=== PATIENT | female | born 1955 | race Caucasian/White ===

== ENCOUNTER 2017-07-21 11:14 | Emergency (ER) | payer OTHER ==
[~2017-07-21] VITALS: Ht 157.5 cm; Wt 82.1 kg
[~2017-07-21 11:14] MED LIST: REMICADE100 MG; TAPENTADOL PO; Z.0.CELEXA40 MG PO; Z.0.MILLIPRED5 MG; Z.0.PLAQUENIL200 MG; Z.0.ULTRAM 50MG50 MG PO; Z.0.XANAX0.5 MG PO; [UNRECOGNIZED DRUG - OTHER]; [UNRECOGNIZED DRUG - OTHER]; [UNRECOGNIZED DRUG - OTHER] PO
[2017-07-21 11:59] LABS: BASOPHILS # (AUTO) 0.1 (0.0-0.1); BASOPHILS % 0.7 % (0.0-1.0); EOSINOPHILS # (AUTO) 0.1 (0.0-0.4); EOSINOPHILS % 0.6 % (0.0-6.0); HEMATOCRIT 41.4 % (34.2-44.1); HEMOGLOBIN 13.3 g/dL (12.0-16.0); LYMPHOCYTES # (AUTO) 2.5 (1.0-3.2); LYMPHOCYTES % 25.3 % (18.0-39.1); MEAN CORPUSCULAR HEMOGLOBIN 28.7 pg (28-32); MEAN CORPUSCULAR HGB CONC 32.1 g/dL (31-35); MEAN CORPUSCULAR VOLUME 89.4 fL (81-99); MONOCYTES # (AUTO) 0.6 (0.2-0.8); NEUTROPHILS # (AUTO) 6.6 (2.1-6.9); NEUTROPHILS % 67.1 % (38.7-80.0); PLATELET COUNT 293 x10e3/uL (140-360); RED BLOOD COUNT 4.63 x10e6/uL (3.6-5.1); RED CELL DISTRIBUTION WIDTH 16.5 % (11.7-14.4)
[2017-07-21 12:09] LABS: INR 0.86; PROTHROMBIN TIME 12.2 seconds (11.9-14.5)
[2017-07-21 12:10] LABS: PARTIAL THROMBOPLASTIN TIME 27.5 seconds (23.8-35.5)
[2017-07-21 12:17] LABS: ALANINE AMINOTRANSFERASE 15 IU/L (0-55); ALKALINE PHOSPHATASE 103 IU/L (40-150); ANION GAP 13.9 mmol/L (8-16); BLOOD UREA NITROGEN 13 mg/dL (7-26); BUN/CREATININE RATIO 16 (6-25); CALCIUM 9.5 mg/dL (8.4-10.2); CARBON DIOXIDE 27 mmol/L (22-29); CHLORIDE 102 mmol/L (98-107); CREATINE KINASE 37 IU/L (29-168); CREATININE, SERUM 0.81 mg/dL (0.57-1.11); EST GLOMERULAR FILTRATION RATE > 60 ML/MIN (60-); GLUCOSE 119 mg/dL (74-118); LIPASE 8 U/L (8-78); POTASSIUM 3.9 mmol/L (3.5-5.1); SODIUM 139 mmol/L (136-145)
[2017-07-21] MEDS ORDERED: TRAMADOL HCL 50 MG TAB PO ONE (12:30)
[2017-07-21 12:41] LABS: BILIRUBIN,URINE NEGATIVE (NEGATIVE); KETONES,URINE NEGATIVE (NEGATIVE); LEUKOCYTE ESTERASE ,URINE TRACE (NEGATIVE); NITRITE,URINE NEGATIVE (NEGATIVE); PROTEIN,URINE DIPSTICK NEGATIVE (NEGATIVE); URINE UROBILINOGEN 0.2 mg/dL (0.2 - 1)
--- NOTE | 2017-07-21 12:58 | Diagnostic Imaging Report ---
PROCEDURE: A single AP view of the chest. COMPARISON: Chest x-ray of 12/12/2011. INDICATIONS: CHEST PAIN FINDINGS: Lines/tubes: None. Lungs: The lungs are well inflated. Several subtle nodular opacities in the right upper lobe. Slight increase in groundglass opacity in the left lung base. Pleura: There is no pleural effusion or pneumothorax. Heart and mediastinum: The heart and the mediastinum are unremarkable. Bones: No acute bony abnormality. Severe degenerative changes in bilateral humeral heads with flattening of the right humeral head. IMPRESSION: 1. Scattered nodular opacities in the right upper lobe and ground glass opacities in left lung base. This likely represents infection. 2. Severe degenerative changes in bilateral humeral heads with collapse of the right humeral head. Correlate for avascular necrosis. Dictated by: Erich Silva M.D. on 07/21/2017 at 13:06 Electronically approved by: Erich Silva M.D. on 07/21/2017 at 13:06
[2017-07-21 13:22] LABS: BACTERIA,URINE RARE /HPF; CLARITY,URINE SL CLOUDY (CLEAR); COLOR,URINE YELLOW (YELLOW); EPITHELIAL CELLS,URINE RARE /LPF
[2017-07-21 15:07] VITALS: BP 111/53
== END 2017-07-21 15:14 | disposition home or self-care (01) ==
LOC: ER 11:14
DX: R07.89 Other chest pain (principal); J18.9 Pneumonia, unspecified organism; I10 Essential (primary) hypertension; M06.9 Rheumatoid arthritis, unspecified; K50.90 Crohn's disease, unspecified, without complications
CPT/HCPCS: 36415; 71010; 80053; 81001; 82550; 82553; 83690; 84484; 85025; 85610; 85730; 87086; 93005; 99284

== ENCOUNTER → 2018-04-19 | Outpatient (CLI) | payer OTHER ==
[~2018-04-19] MED LIST changes: +SINCALIDE 3 MCG/VIAL INJ ONE
--- NOTE | 2018-04-19 14:11 | Diagnostic Imaging Report ---
EXAM: US GALLBLADDER DATE: 04/19/2018 1:13 PM INDICATION: Acute gastritis COMPARISON: None TECHNIQUE: Transverse and longitudinal cantor scale and color doppler sonographic images of the upper abdomen were obtained. FINDINGS: LIVER 12.7 cm in the right midclavicular line. Normal echogenicity, normal contour, no masses. GALLBLADDER No stones, sludge, wall-thickening or pericholecystic fluid. Negative sonographic Martinez's sign. BILE DUCTS No intra nor extra-hepatic biliary dilation. Common bile duct measures 0.5 cm PANCREAS: Visualized portions are normal. RIGHT KIDNEY: 9.2 cm Echogenicity: Normal Collecting System: No hydronephrosis Stones: None Cyst/Mass: None VESSELS: Aorta: Visualized portions are within normal size limits Inferior Vena Cava: Patent Main Portal Vein: 0.8 cm, normal size with hepatopetal flow. FREE FLUID: None IMPRESSION: Unremarkable sonographic appearance of the gallbladder. Signed by: Dr. Satya Vinson M.D. on 04/19/2018 2:08 PM
--- NOTE | 2018-04-19 17:43 | Diagnostic Imaging Report ---
Hepatobiliary Scan with Gallbladder Ejection Fraction Clinical information: RUQ abdominal pain x 6 months; history of Crohn's disease. Report: Following intravenous administration of 6.6 millicuries of Tc-99m mebrofenin, dynamic images of the abdomen in the anterior projection were obtained through 51 minutes. Sincalide (CCK analog) 1.5 micrograms was administered intravenously over 30 minutes with additional imaging for determination of gallbladder ejection fraction. Perfusion to the liver is normal. Extraction of tracer from the blood pool by the liver parenchyma is normal. Tracer is seen promptly within the biliary tract. The gallbladder begins to fill by 12 minutes post-injection of tracer and fills adequately. Tracer is seen in the small bowel during the sincalide infusion. The gallbladder ejection fraction with administration of sincalide is 70% (normal greater than 40%). Impression: 1. Filling of the gallbladder excludes the diagnosis of acute cystic duct obstruction/acute cholecystitis. 2. Normal gallbladder ejection fraction of 70% does not support the clinical diagnosis of chronic cholecystitis/gallbladder dyskinesia. Signed by: Dr. Valery Mejia M.D. on 04/19/2018 5:39 PM
== END ==
LOC: US 12:59
PROVIDERS: ATTEND Internal Medicine Gastroenterology
DX: K29.00 Acute gastritis without bleeding (principal)
CPT/HCPCS: 76705; 78227; A9537; J2805

== ENCOUNTER → 2018-06-10 | Outpatient (CLI) | payer OTHER ==
[~2018-06-10] MED LIST changes: -SINCALIDE 3 MCG/VIAL INJ ONE
--- NOTE | 2018-06-10 12:22 | Diagnostic Imaging Report ---
Frontal and lateral views of the chest. HISTORY: Latent TB TEST, CHRON'S DZ COMPARISON: None available. DISCUSSION: Lungs: Low lung volumes result in bibasilar vascular crowding, accentuation of the pulmonary interstitial markings, central pulmonary vasculature, and the cardiac silhouette. Allowing for these limitations, the findings are as follows: Mild left basilar atelectasis versus scarring, best seen on the frontal view. No evidence of a consolidative pneumonia or pulmonary alveolar edema. Pleura: No pleural effusion or pneumothorax. Heart and mediastinum: The cardiomediastinal silhouette appears unremarkable. Bones: Partially visualized posterior lumbosacral fixation hardware and decompressive laminectomy defects. IMPRESSION: 1. Mild left basilar atelectasis versus scarring. 2. No specific radiographic evidence of active tuberculosis Signed by: Dr. Velasquez Francisco D.O., M.M.M. on 06/10/2018 12:18 PM
== END ==
LOC: RAD 10:53
PROVIDERS: ATTEND Internal Medicine Critical Care Medicine
DX: A15.9 Respiratory tuberculosis unspecified (principal); K50.90 Crohn's disease, unspecified, without complications
CPT/HCPCS: 71046

== ENCOUNTER 2018-10-18 11:18 | Observation (INO) | payer OTHER ==
[~2018-10-18] VITALS: Ht 157.5 cm; Wt 70.3 kg
--- OUTSIDE RECORDS SUMMARY | 2018-10-18 11:21 | XMS REPORT ---
Author [facility] Address Unknown Phone Unavailable Care Team Providers Care Vendor Representatives Name Role Phone NISHI VARGAS Unavailable Unavailable ALBERTO GIPSON Unavailable Unavailable DR BON FERNANDES Unavailable Unavailable [place] GRAY Unavailable Unavailable Problems This patient has no known problems. Allergies, Adverse Reactions, Alerts This patient has no known allergies or adverse reactions. Medications This patient has no known medications. Encounters Start Date/Time End Date/Time Encounter Type Admission Type Attending [facility] Care Department Encounter ID 2017-08-10 11:46:00 2017-08-10 14:39:00 Outpatient [facility] [id number] 2017-05-20 11:33:00 2017-05-20 13:40:00 Outpatient [facility] [id number] Results Test Description Test Time Test Comments Text Results Atomic Results Result Comments CHEST 2 VIEWS 2018-06-10 12:16:00 [place] [address] Patient Name: TASHI KHAN MR #: [id number] : 1955 Age/Sex: 63/F Req #: [id number] Adm Physician: Ordered by: NISHI VARGAS MD Report #: [id number] Location: [facility] Room/Bed: Procedure: [id number] DX/CHEST 2 VIEWS Exam Date: Exam Time: REPORT STATUS: Signed Frontal and lateral views of the chest. HISTORY: Latent TB TEST, CHRON'S DZ COMPARISON: None available. DISCUSSION: Lungs: Low lung volumes result in bibasilar vascular crowding, accentuation of the pulmonary interstitial markings, central pulmonary vasculature, and the cardiac silhouette. Allowing for these limitations, the findings are as follows: Mild left basilar atelectasis versus scarring, best seen on the frontal view. No evidence of a consolidative pneumonia or pulmonary alveolar edema. Pleura: No pleural effusion or pneumothorax. Heart and mediastinum: The cardiomediastinal silhouette appears unremarkable. Bones: Partially visualized posterior lumbosacral fixation hardware and decompressive laminectomy defects. IMPRESSION: 1. Mild left basilar atelectasis versus scarring. 2. No specific radiographic evidence of active tuberculosis Signed by: Dr. Velasquez Francisco D.O., M.M.M. on 06/10/2018 12:18 PM Dictated By: VELASQUEZ FRANCISCO DO 1218 Transcribed By: JEFFRY on 06/10/18 1218 COPY TO: NISHI VARGAS MD HEPTOBILIARY W PHARM 2018-04-19 17:37:00 [place] [address] Patient Name: TASHI KHAN MR #: [id number] : 1955 Age/Sex: 63/F Req #: [id number] Adm Physician: Ordered by: ALBERTO GIPSON MD Report #: [id number] Location: US Room/Bed: Procedure: [id number] NM/HEPTOBILIARY W PHARM Exam Date: 10/08/18 Exam Time: 1010 REPORT STATUS: Signed Hepatobiliary Scan with Gallbladder Ejection Fraction Clinical information: RUQ abdominal pain x 6 months; history of Crohn's disease. Report: Following intravenous administration of 6.6 millicuries of Tc-99m mebrofenin, dynamic images of the abdomen in the anterior projection were obtained through 51 minutes. Sincalide (CCK analog) 1.5 micrograms was administered intravenously over 30 minutes with additional imaging for determination of gallbladder ejection fraction. Perfusion to the liver is normal. Extraction of tracer from the blood pool by the liver parenchyma is normal. Tracer is seen promptly within the biliary tract. The gallbladder begins to fill by 12 minutes post-injection of tracer and fills adequately. Tracer is seen in the small bowel during the sincalide infusion. The gallblad celso ejection fraction with administration of sincalide is 70% (normal greater than 40%). Impression: 1. Filling of the gallbladder excludes the diagnosis of acute cystic duct obstruction/acute cholecystitis. 2. Normal gallbladder ejection fraction of 70% does not support the clinical diagnosis of chronic cholecystitis/gallbladder dyskinesia. Signed by: Dr. Bryn Mejia M.D. on 04/19/2018 5:39 PM Dictated By: BRYN MEJIA MD 38 Transcribed By: JEFFRY on 04/19/181738 COPY TO: ALBERTO GIPSON MD GALLBLADDER 2018-04-19 14:06:00 [place] [address] Patient Name: TASHI KHAN MR #: [id number] : 1955 Age/Sex: 63/F Req #: [id number] Adm Physician: Ordered by: ALBERTO GIPSON MD Report #: [id number] Location: US Room/Bed: Procedure: [id number] US/US GALLBLADDER Exam Date: Exam Time: REPORT STATUS: Signed EXAM: US GALLBLADDER DATE: 04/19/2018 1:13 PM INDICATION: Acute gastritis COMPARISON: None TECHNIQUE: Transverse and longitudinal cantor scale and color doppler sonographic images of the upper abdomen were obtained. FINDINGS: LIVER 12.7 cm in the right midclavicular line. Normal echogenicity, normal contour, no masses. GALLBLADDER No stones, sludge, wall- thickening or pericholecystic fluid. Negative sonographic Martinez's sign. BILE DUCTS No intra nor extra-hepatic biliary dilation. Common bile duct measures 0.5 cm PANCREAS: Visualized portions are normal. RIGHT KIDNEY: 9.2 cm Echogenicity: Normal Collecting System: No hydronephrosis Stones: None Cyst/Mass: None VESSELS: Aorta: Visualized portions are within normal size limits Inferior Vena Cava: Patent Main Portal Vein: 0.8 cm, normal size with hepatopetal flow. FREE FLUID: None IMPRESSION: Unremarkable sonographic appearance of the gallbladder. Signed by: Dr. Karon Bunn M.D. on 04/19/2018 2:08 PM Dictated By: KARON BUNN MD 07 Transcribed By: JEFFRY on 04/19/181407 COPY TO: ALBERTO GIPSON MD [facility] (NOT PORTABLE) [place] [address] Patient Name: TASHI KHAN MR #: [id number] : 1955 Age/Sex: 62/F Req #: [id number] Adm Physician: Ordered by: PATRICIA LAYNE GAS TESTER Report #: [id number] Location: Room/Bed: Procedure: [id number] DX/CHEST SINGLE (NOT PORTABLE) Exam Date: 07/21/17 Exam Time: 1235 REPORT STATUS: Signed PROCEDURE: A single AP view of the chest. COMPARISON: Chest x-ray of 12/12/2011. INDICATIONS: CHEST PAIN FINDINGS: Lines/tubes: None. Lungs: The lungs are well inflated. Several subtle nodular opacities in the right upper lobe. Slight increase in groundglass opacity in the left lung base. Pleura: There is no pleural effusion or pneumothorax. Heart and mediastinum: The heart and the mediastinum are unremarkable. Bones: No acute bony abnormality. Severe degenerative changes in bilateral humeral heads with flattening of the right humeral head. IMPRESSION: 1. Scattered nodular opacities in the right upper lobe and ground glass opacities in left lung base. This likely represents infection. 2. Severe degenerative changes in bilateral humeral heads with collapse of the right humeral head. Correlate for avascular necrosis. Dictated by: Erich Bobo M.D. on 07/21/2017 at 13:06 Electronically approved by: Erich Bobo M.D. on 07/21/2017 at 13:06 Dictated By: ERICH BOBO MD 1306 Transcribed By: FEDERICA on 07/21/17 1306 COPY TO: PATRICIA LAYNE NP
--- OUTSIDE RECORDS SUMMARY | 2018-10-18 11:21 | XMS REPORT | Summary of Care ---
Author Author [facility] Organization [facility] Address Unknown Phone Unavailable Encounter [facility] Grady(DAVON) [id number] Date(s): 12/08/17 - 12/08/[address] [facility] [address] [place] [address]- Encounter Diagnosis Fall (Discharge Diagnosis) - 12/08/17 Back pain (Discharge Diagnosis) - 12/08/17 Discharge Disposition: Home or Self Care Attending Physician: Chiqui Krishnan MD Vital Signs Most recent to 1 2 oldest [Reference Range]: Height 157.48 cm (12/08/17 12:05 PM) Temperature Oral 98.9 DegF 99.6 DegF [96.4-99.1 DegF] (12/08/17 4:33 PM) *HI* (12/08/17 12:05 PM) Blood Pressure 105/67 mmHg 98/73 mmHg [90-140/60-90 mmHg] (12/08/17 4:33 PM) (12/08/17 12:05 PM) Respiratory Rate 15 BRMIN 18 BRMIN [14-20 BRMIN] (12/08/17 4:33 PM) (12/08/17 12:05 PM) Peripheral Pulse 85 bpm 91 bpm Rate [60-100 bpm] (12/08/17 4:33 PM) (12/08/17 12:05 PM) Weight 75 kg (12/08/17 12:05 PM) Body Mass Index 30.24 m2 (12/08/17 12:05 PM) Problem List No data available for this section Allergies, Adverse Reactions, Alerts Substance Reaction Severity Status NKDA Active Medications ibuprofen 400 mg oral tablet 400 mg=1 tab, PO, Q6H, PRN Pain or Fever, Take with food, X 5 day, # 20 tab, 0 R efill(s) Start Date: 12/08/17 Stop Date: 12/13/17 Status: Ordered [place] 5/325 oral tablet 1 tab, Route: PO, Drug Form: TAB, Dosing Weight 75, kg, ONCE, STAT, Start date: 12/08/17 12:35:00 CDT, Stop date: 12/08/17 12:35:00 CDT Notes: (Same as: [place] 325/5) Do not exceed 4gm/day of acetaminophen. Start Date: 12/08/17 Stop Date: 12/08/17 Status: Completed tramadol 50 mg oral tablet 50 mg=1 tab, PO, Q6H, PRN Pain, X 2 day, # 8 tab, 0 Refill(s) Start Date: 12/08/17 Stop Date: 12/10/17 Status: Completed Results No data available for this section Immunizations No data available for this section Procedures No data available for this section Social History Social History Type Response Smoking Status Heavy tobacco smoker; Type: Cigarettes; Previous treatment: None; Exposure to Tobacco Smoke None; Cigarette Smoking Last 365 Days Yes; Reg Smoking Cessation Counseling No entered on: 12/08/17 Assessment and Plan No data available for this section
--- OUTSIDE RECORDS SUMMARY | 2018-10-18 11:21 | XMS REPORT | Continuity of Care Document ---
Author Author Ace trey [facility] Address Unknown Phone Unavailable Problems Problem Status Onset Date Classification Date Reported Comments Source MRI LUMBAR SPINE W-WO CONTRAST DX: LOW B Active 07/29/2018 [facility] Fall 12/08/2017 12/11/2017 [facility] Back pain 12/08/2017 12/11/2017 [facility] FALL Active 12/08/2017 [facility] Medications Medication Details Route Status Patient Instructions Ordering Provider Order Date Source tramadol hydrochloride 50 MG Oral Tablet 50 mg=1 tab, PO, Q6H, PRN Pain, X 2 day, # 8 tab, 0 Refill(s) No Longer Active 12/08/2017 [facility] Ibuprofen 400 MG Oral Tablet 400 mg=1 tab, PO, Q6H, PRN Pain or Fever, Take with food, X 5 day, # 20 tab, 0 Refill(s) Active 12/08/2017 [facility] Acetaminophen 325 MG / Hydrocodone Bitartrate 5 MG Oral Tablet [[place] 5/325] 1 tab, Route: PO, Drug Form: TAB, Dosing Weight 75, kg, ONCE, STAT, Start date: 12/08/17 12:35:00 CDT, Stop date: 12/08/17 12:35:00 CDTNotes: (Same as: [place] 325/5) Do not exceed 4gm/day of acetaminophen. Inactive 12/08/2017 [facility] Allergies, Adverse Reactions, Alerts Substance Category Reaction Severity Reaction type Status Date Reported Comments Source Immunizations Immunization Date Given Site Status Last Updated Comments Source Results Order Name Results Value Reference Range Date Interpretation Comments Source CHEM PANEL eGFR 99 mL/min/1.73m2 08/05/2018 Result Comment: The eGFR is calculated using the CKD-EPI formula. In most young, healthy individuals the eGFR will be >90 mL/min/1.73m2. The eGFR declines with age. An eGFR of 60-89 may be normal in some populations, particularly the elderly, for whom the CKD-EPI formula has not been extensively validated. Use of the eGFR is not recommended in the following populations: Individuals with unstable creatinine concentrations, including patients and those with serious co-morbid conditions. Patients with extremes in muscle mass or diet. The data above are obtained from the National Kidney Disease Education Program (NKDEP) which additionally recommends that when the eGFR is used in patients with extremes of body mass index for purposes of drug dosing, the eGFR should be multiplied by the estimated BMI. [facility] CHEM PANEL POC Creatinine 0.6 mg/dL 0.5 - 1.4 08/05/2018 [facility] Spine lumbar w/wo contrast MRI Spine lumbar w/wo contrast MRI Clinical Indication: - M54.5 Low back pain; Comparison: Lumbar spine radiograph 12/08/2017 TECHNIQUE: Multiplanar T1, T2, STIR weighted noncontrast MRI of the lumbar spine is performed on the 1.5 June magnet. Post-contrast sequences were also obtained. Contrast: 14 cc of IV gadolinium was administered. FINDINGS: ALIGNMENT AND GENERAL ASSESSMENT: Posterior lumbar fusion spans L3-L5. Alignment of the lumbar spine is unchanged. Anterolisthesis of L4 on L5 measures 6 mm. Anterolisthesis of L3 on L4 measures 4 mm. Interbody disc spacers are present at the L3-L4 and L4-L5 levels. Superior endplate compression deformity of T12, unchanged. Schmorl node along the superior endplate of T11 is age-indeterminate. Focal enhancement may indicate a recent Schmorl's node. Enhancement on the bone marrow within T12 nonspecific. This could reflect reactive change from biomechanical stress. Superimposed acute compression deformity is difficult to exclude. Additional area of reactive bone marrow within L5. Motion artifact on postcontrast imaging limits evaluation. No convincing abnormal enhancement evident. DISC SPACES: T12-L1: No disc bulge or protrusion. No spinal canal stenosis or foraminal narrowing. L1-L2: No disc bulge or protrusion. No spinal canal stenosis or foraminal narrowing. L2-L3: Small left foraminal disc protrusion. No spinal canal stenosis. No foraminal narrowing. L3-L4: Posterior fusion. Spinal canal is broad. No spinal canal stenosis. No foraminal narrowing. L4-L5: Posterior fusion. Moderate spinal canal stenosis. Spinal canal measures 7 mm. Mild bilateral foraminal narrowing. L5-S1: Diffuse disc bulge. No spinal canal stenosis. No foraminal narrowing. IMPRESSION: 1. Posterior fusion spans L3-L5. Alignment of the lumbar spine is unchanged. 2. Moderate spinal canal stenosis at L4-L5. 3. Bilateral foraminal narrowing at L4-L5. 4. Redemonstrated anterior wedge compression fracture T12. This is not significantly changed from the prior study. Enhancing bone marrow edema within T12 is likely reactive in nature. Superimposed acute compression of a chronic compression fracture is less likely but difficult to exclude. 5. Age-indeterminate Schmorl's node along the superior endplate of T11. This could be recent or acute in nature. SL: [id number] 08/05/2018 - - Read by: Bib Simmons MD Dictated Date/time: 08/05/18 14:08 Electronically Signed by: Bib Simmons MD 08/05/18 14:18 FINAL REPORT [facility] Spine lumbar 2 or 3 views DX Spine lumbar 2 or 3 views DX Study: Lumbar spine, 3 views Clinical Indication: Back pain post fall Comparison: None FINDINGS: Multiple views of the lumbar spine show 5 nonrib-bearing lumbar vertebra. Chronic appearing, mild anterior wedge compression deformity of the T12 vertebral body is seen with 20% loss of anterior height and no significant osseous retropulsion. Grade 1 anterolisthesis of L3 over L4 by 9 mm is seen. Grade 1 anterolisthesis of L4 over L5 by 12 mm is seen. Postoperative changes of multilevel posterior instrumentation for fusion with transpedicular fixation screws and Sales rods from L3 through L5 are seen. Paralleling lucency about the L5 transpedicular fixation screws is seen. Changes of discectomy and interbody spacer placement at L3-L4 and L4-L5 are seen. The remaining intervertebral disc spaces are well-maintained. IMPRESSION: 1. No acute bony abnormality of the lumbar spine. 2. Postoperative changes of multilevel fusion in the lower lumbar spine. Paralleling lucency about the L5 transpedicular fixation screws is seen and hardware loosening cannot be excluded. SL: [id number] 12/08/2017 - - Read by: Chaim Rod MD Dictated Date/time: 12/08/17 14:02 Electronically Signed by: Chaim Rod MD 12/08/17 14:04 FINAL REPORT [facility] Hip bilat w pelvis 3/4 views DX Hip bilat w pelvis 3/4 views DX EXAM: XR BILATERAL HIP 2 VIEW WITH AP PELVIS DATE: 12/08/2017 12:35 PM CDT INDICATION: - pain post fall COMPARISON: TECHNIQUE: Frogleg lateral and AP views of the bilateral hips and a single AP view of the pelvis DISCUSSION: No acute fracture or malalignment is identified. Hip joint spaces are preserved bilaterally. No soft tissue abnormality is identified. There was previous posterior fusion of L3, L4, and L5. IMPRESSION: No bony abnormality. SL: [id number] 12/08/2017 - - Read by: Myles Morales MD Dictated Date/time: 12/08/17 14:08 Electronically Signed by: Myles Morales MD 12/08/17 14:09 FINAL REPORT [facility] Vital Signs Vital Sign Value Date Comments Source Systolic (mm Hg) 105 12/08/2017 [facility] Diastolic (mm Hg) 67 12/08/2017 [facility] Heart Rate 85 12/08/2017 [facility] Temperature Oral (F) 98.9 F 12/08/2017 [facility] Respitory Rate 15 12/08/2017 [facility] Weight 75 12/08/2017 [facility] Temperature Oral (F) 99.6 F 12/08/2017 [facility] Respitory Rate 18 12/08/2017 [facility] Height 157.48 cm 12/08/2017 [facility] BMI Calculated 30.24 12/08/2017 [facility] Systolic (mm Hg) 98 12/08/2017 [facility] Diastolic (mm Hg) 73 12/08/2017 [facility] Heart Rate 91 12/08/2017 [facility] Encounters Location Location Details Encounter Type Encounter Number Reason For Visit Attending Provider ADM Date DC Date Status Source [facility] Emergency [id number] Chiqui Eulogio 12/08/2017 12/08/2017 [facility] Outpatient [id number] Ren Dacosta 08/05/2018 08/06/2018 [facility] Procedures Procedure Code Date Perfomer Comments Source
--- OUTSIDE RECORDS SUMMARY | 2018-10-18 11:21 | XMS REPORT | Summary of Care ---
Author Author [facility] Organization [facility] Address Unknown Phone Unavailable Encounter GRIS Rasmussen(DAVON) [id number] Date(s): 08/05/18 - 08/05/18 [facility] [address] [place] [address]- Discharge Disposition: Home or Self Care Attending Physician: Cristiane Dacosta DO Referring Physician: Ren Dacosta MD Vital Signs No data available for this section Problem List No data available for this section Allergies, Adverse Reactions, Alerts Substance Reaction Severity Status NKDA Active Medications No data available for this section Results CHEM PANEL Most recent to 1 oldest [Reference Range]: eGFR 99 mL/min/1.73m2 1 *NA* (08/05/18 7:13 AM) POC Creatinine 0.6 mg/dL [0.5-1.4 mg/dL] (08/05/18 7:13 AM) 1Result Comment: The eGFR is calculated using the [...] from the National Kidney Disease Education Program ( NKDEP) which additionally recommends that when the eGFR is used in patients with extremes of body mass index for purposes of drug dosing, the eGFR should be mul tiplied by the estimated BMI. Immunizations No data available for this section [...]
[2018-10-18] MEDS ORDERED: PANTOPRAZOLE 40 MG 10ML VIAL IV STA (13:34)
[2018-10-18] MEDS ORDERED: SODIUM CHLORIDE 0.9% 1000ML 1,000 ML IV STA (13:34)
[2018-10-18 14:13] LABS: BILIRUBIN,URINE 1+ (NEGATIVE); CLARITY,URINE SL CLOUDY (CLEAR); COLOR,URINE YELLOW (YELLOW); KETONES,URINE TRACE (NEGATIVE); LEUKOCYTE ESTERASE ,URINE TRACE (NEGATIVE); NITRITE,URINE NEGATIVE (NEGATIVE); PROTEIN,URINE DIPSTICK TRACE (NEGATIVE); URINE UROBILINOGEN 0.2 mg/dL (0.2 - 1)
[2018-10-18 14:16] LABS: BASOPHILS # (AUTO) 0.1 (0.0-0.1); BASOPHILS % 0.8 % (0.0-1.0); EOSINOPHILS # (AUTO) 0.1 (0.0-0.4); HEMATOCRIT 39.6 % (34.2-44.1); HEMOGLOBIN 12.8 g/dL (12.0-16.0); LYMPHOCYTES % 42.4 % (18.0-39.1); MEAN CORPUSCULAR HEMOGLOBIN 28.9 pg (28-32); MEAN CORPUSCULAR HGB CONC 32.3 g/dL (31-35); MEAN CORPUSCULAR VOLUME 89.4 fL (81-99); MONOCYTES # (AUTO) 0.5 (0.2-0.8); MONOCYTES % 6.4 % (4.4-11.3); NEUTROPHILS # (AUTO) 3.5 (2.1-6.9); NEUTROPHILS % 49.1 % (38.7-80.0); PLATELET COUNT 390 x10e3/uL (140-360); RED BLOOD COUNT 4.43 x10e6/uL (3.6-5.1); RED CELL DISTRIBUTION WIDTH 13.9 % (11.7-14.4)
[2018-10-18 14:22] LABS: AMORPHOUS SEDIMENT,URINE FEW (FEW); BACTERIA,URINE MODERATE /HPF; EPITHELIAL CELLS,URINE MANY /LPF
[2018-10-18 17:30] LABS: ALANINE AMINOTRANSFERASE 9 IU/L (0-55); ALBUMIN 3.6 g/dL (3.5-5.0); ALKALINE PHOSPHATASE 110 IU/L (40-150); AMYLASE 21 U/L (25-125); ANION GAP 11.5 mmol/L (8-16); BLOOD UREA NITROGEN 7 mg/dL (7-26); BUN/CREATININE RATIO 10 (6-25); CALCIUM 9.2 mg/dL (8.4-10.2); CARBON DIOXIDE 25 mmol/L (22-29); CHLORIDE 107 mmol/L (98-107); EST GLOMERULAR FILTRATION RATE > 60 ML/MIN (60-); GLUCOSE 79 mg/dL (74-118); LIPASE 6 U/L (8-78); POTASSIUM 3.5 mmol/L (3.5-5.1); SODIUM 140 mmol/L (136-145)
[2018-10-18] MEDS ORDERED: MORPHINE SULFATE 2 MG/ML SYR 1ML IV PRN (20:15)
[2018-10-18] MEDS: SODIUM CHLORIDE 0.9% 1000ML 1,000 ML IV SCH (21:08)
[2018-10-19 06:34] LABS: BASOPHILS # (AUTO) 0.1 (0.0-0.1); BASOPHILS % 1.5 % (0.0-1.0); EOSINOPHILS # (AUTO) 0.1 (0.0-0.4); EOSINOPHILS % 2.3 % (0.0-6.0); LYMPHOCYTES # (AUTO) 2.4 (1.0-3.2); LYMPHOCYTES % 49.4 % (18.0-39.1); MEAN CORPUSCULAR HEMOGLOBIN 28.5 pg (28-32); MEAN CORPUSCULAR HGB CONC 31.3 g/dL (31-35); MEAN CORPUSCULAR VOLUME 91.2 fL (81-99); MONOCYTES # (AUTO) 0.6 (0.2-0.8); MONOCYTES % 11.7 % (4.4-11.3); NEUTROPHILS # (AUTO) 1.7 (2.1-6.9); NEUTROPHILS % 34.9 % (38.7-80.0); PLATELET COUNT 228 x10e3/uL (140-360); RED BLOOD COUNT 3.51 x10e6/uL (3.6-5.1); RED CELL DISTRIBUTION WIDTH 13.2 % (11.7-14.4)
[2018-10-19] MEDS: SODIUM CHLORIDE 0.9% 1000ML 1,000 ML IV SCH ×2 (06:41→20:05)
[2018-10-19 07:00] LABS: ANION GAP 10.5 mmol/L (8-16); BLOOD UREA NITROGEN 6 mg/dL (7-26); BUN/CREATININE RATIO 9 (6-25); CALCIUM 8.9 mg/dL (8.4-10.2); CARBON DIOXIDE 24 mmol/L (22-29); CHLORIDE 111 mmol/L (98-107); CREATININE, SERUM 0.66 mg/dL (0.57-1.11); EST GLOMERULAR FILTRATION RATE > 60 ML/MIN (60-); GLUCOSE 69 mg/dL (74-118); POTASSIUM 3.5 mmol/L (3.5-5.1); SODIUM 142 mmol/L (136-145)
--- NOTE | 2018-10-19 07:21 | NUR ---
WALKING ROUNDS WITH CHARISMA GARSIA
--- NOTE | 2018-10-19 07:45 | History and Physical ---
A 63-year-old female comes in with abdominal pain and nausea, vomiting, and diarrhea. HISTORY PRESENTING ILLNESS: Ms. Wells with a history of Crohn disease with usual state of health until she has pain in the periumbilical epigastric area for the last 5 to 7 days and the patient's pain severely got out of control, was 10/10 in intensity and the patient came into Dr. Whyte's office and was sent to the ER for further evaluation. PAST MEDICAL HISTORY: History of Crohn disease, history of ankylosing spondylosis, history of gastric ulcer which is recently diagnosed and also history of anxiety and chronic pain syndrome. MEDICATIONS: She takes Nucynta, alprazolam. She gets Remicade infusions for Crohn disease. The patient also takes alprazolam as needed for anxiety. PAST SURGICAL HISTORY: 1. History of recent fusion lumbar spine. 2. History of left knee surgery replacement. 3. History of left shoulder surgery inclusive of rotator cuff repair. REVIEW OF SYSTEMS: Negative for chest pain. Positive for shortness of breath. Positive for nausea, vomiting, or diarrhea. No constipation. No rectal bleeding. No hematochezia. No hematemesis. No diplopia. No blurry vision. PHYSICAL EXAMINATION: VITAL SIGNS: Temperature was 98.2, blood pressure was 134/92, dropped down to 90/60 right now, pulse oximetry of 97%. HEENT: Normocephalic, atraumatic. No icterus present. CVS: S1, S2 normal. Regular rhythm. ABDOMEN: Tender diffusely periumbilical more and epigastric. EXTREMITIES: No clubbing, no cyanosis, and no edema. LABORATORY VALUES: The patient's white count is 7.06, hemoglobin of 12.8, hematocrit of 39.6. Chemistries show sodium of 140, potassium is 3.5, BUN is 7, creatinine 0.70. IMAGING STUDIES: None done. ASSESSMENT: Crohn disease exacerbation. The patient recently had endoscopy by Dr. Whyte, which showed a gastric ulcer or peptic ulcer disease. PLAN: Continue the patient on IV fluid resuscitation with laboratory values will be done tomorrow. The patient is currently on morphine sulfate, pantoprazole, and Zofran as needed. We will continue to monitor the patient's fluid resuscitation and possible discharge in [address] Whyte has assessed the patient. We will restart the patient's home medications while she is here. MD JACOBY Llanos/GABRIELAL /[id number]
[2018-10-19] MEDS: PANTOPRAZOLE 40 MG 10ML VIAL IV SCH ×2 (08:24→17:30)
--- NOTE | 2018-10-19 08:26 | NUR ---
Patient resting with no distress noted at this time.
[2018-10-19] MEDS: MORPHINE SULFATE INJ 4 MG/ML INJ 1ML IV PRN ×3 (11:05→22:08)
[2018-10-19] MEDS: ONDANSETRON HCL INJ 2MG/ML 2ML 2 MG/ML VIAL IV PRN ×3 (11:05→22:08)
--- NOTE | 2018-10-19 11:10 | NUR ---
Recvd pt from ER, AAOx3, not in any distress, resp even and unlabored, call light in reach
[2018-10-19 11:16] VITALS: BP 119/66
[2018-10-19 11:27] VITALS: BP 119/66
--- NOTE | 2018-10-19 14:15 | NUR ---
Visit made by the Spiritual Care Department Pastoral Visitor, Malena River. PV provided pastoral presence, hospitality, prayer, and supportive listening. Pastoral Visitor informed pt/family of the scope of [employer] and availability. CRICKET GOODMAN [employer] Spiritual Care Department O: [phone] Pager: [phone] ([phone] number calling from)
[2018-10-19 15:23] VITALS: BP 107/64
--- NOTE | 2018-10-19 19:00 | NUR ---
Report and rounds completed, patient in bed watching TV. IV fluid infusing. Call light within reach. Will continue to monitor.
[2018-10-19] MEDS ORDERED: TAPENTADOL HCL 200 MG PO PRN (19:15)
[2018-10-19] MEDS ORDERED: TRAMADOL HCL 50 MG TAB PO PRN (19:15)
[2018-10-19] MEDS ORDERED: ALPRAZOLAM 0.5 MG TAB PO PRN (19:15)
[2018-10-19 20:00] VITALS: BP 108/56
--- NOTE | 2018-10-19 21:45 | NUR ---
Dr Whyte here rounding: Patient okay to d/c in am. Follow up in office on Thursday or Thursday. Remain on full liquid diet. Take carafate 1 gm PO QID. Prilosec 40 mg po BID.
[2018-10-20] VITALS: BP 106/62
[2018-10-20 04:00] VITALS: BP 101/66
[2018-10-20] MEDS: SODIUM CHLORIDE 0.9% 1000ML 1,000 ML IV SCH (05:10)
--- NOTE | 2018-10-20 06:00 | NUR ---
Resting in bed. No issues or concerns at this time. IV infusing, site CDI. Call light within reach. Will continue to monitor
[2018-10-20] MEDS ORDERED: CARAFATE1 GM PO (06:32)
[2018-10-20] MEDS ORDERED: PRILOSEC OTC20 MG PEG (06:32)
[2018-10-20] MEDS ORDERED: CARAFATE1 GM/10 ML PO (06:33)
[2018-10-20] MEDS ORDERED: PRILOSEC OTC20 MG PO (06:34)
--- NOTE | 2018-10-20 07:28 | Progress Note ---
DATE: SUBJECTIVE: The patient admitted yesterday for hypertension, for intractable diarrhea, and exacerbation of Crohn's. The patient is currently afebrile, able to eat a clear liquid diet and full liquid diet and has kept down Jell-O. Blood pressures are well and the patient has been seen by GI, who has recommended the patient go home today and be seen by him on Thursday. OBJECTIVE: VITAL SIGNS: Temperature is 97.1, pulse of 82, respirations of 17, blood pressure is 101/66, pulse oximetry of 97% on room air. HEENT: Normocephalic, atraumatic. Pupils are reactive to light and accommodation. CVS: S1 and S2 normal. Regular rate and rhythm. ABDOMEN: Nontender, nondistended. Bowel sounds are normal. EXTREMITIES: No clubbing, no cyanosis, no edema. BACK: After status post fixation, doing well. LABORATORY VALUES: Yesterday's hemoglobin is 10.0 and hematocrit of 32.0. Chemistries showed a chloride of 111, potassium of 3.5, and sodium of 142. Urine was negative. MICROBIOLOGY: Urine culture preliminary shows no growth in 18 to 24 hours. ASSESSMENT: Crohn disease exacerbation, peptic ulcer disease, dehydration, and hypertension. PLAN: The patient has been getting IV fluid resuscitation. Blood pressure is better. The patient can be discharged home on her home medications. We will keep her on clear liquid diet until Dr. Whyte sees her on Thursday. The patient has been advised with strict ER warnings. The patient has been advised to keep her pain medicine on the lower side to control the blood pressure and keep it in the higher range. Further recommendation per clinical course, and strict ER warnings given to the patient, and the patient can be discharged today. MD JACOBY Llanos/GABRIELAL /[id number]
[2018-10-20 08:00] VITALS: BP 101/66
[2018-10-20 08:15] VITALS: BP 126/93
[2018-10-20] MEDS ORDERED: CITALOPRAM HYDROBROMIDE 20 MG TAB PO SCH (09:00)
[2018-10-20] MEDS ORDERED: [UNRECOGNIZED DRUG - OTHER] PO SCH (09:00)
[2018-10-20] MEDS ORDERED: ONDANSETRON HCL 4 MG ORAL DISINTEGRATING TAB PO PRN (09:00)
[2018-10-20] MEDS ORDERED: PANTOPRAZOLE SOD 40 MG TABEC PO SCH (09:00)
--- NOTE | 2018-10-20 11:06 | NUR ---
Patient discharged home with written instructions and patient verbalized understanding. IV dc'd, cath intact, and small dressing applied. Spouse at the bedside and will drive patient home.
== END 2018-10-20 11:17 | disposition home or self-care (01) ==
LOC: ER 11:18 → ERHOLD 10-19 01:55 → IMCU 10-19 09:58
PROVIDERS: ADMIT Family Medicine; ATTEND Family Medicine
DX: K50.10 Crohn's disease of large intestine without complications (principal); K29.00 Acute gastritis without bleeding; E86.0 Dehydration; I10 Essential (primary) hypertension
CPT/HCPCS: 36415 ×3; 80048; 80053; 81001; 82150; 82948; 83690; 85025 ×2; 87086; 99284; C9113 ×2; G0378 ×2; J2270; J2405; J7030 ×3; S0164

== ENCOUNTER 2019-04-15 14:56 | Emergency (ER) | payer OTHER ==
[~2019-04-15] VITALS: Ht 157.5 cm; Wt 65.3 kg
[~2019-04-15 14:56] MED LIST changes: +CARAFATE1 GM PO; +CARAFATE1 GM/10 ML PO; +PRILOSEC OTC20 MG PEG; +PRILOSEC OTC20 MG PO
[2019-04-15] MEDS ORDERED: SODIUM CHLORIDE 0.9% 1000ML 1,000 ML IV SCH (15:30)
[2019-04-15 16:41] VITALS: BP 140/89
== END 2019-04-15 16:46 | disposition home or self-care (01) ==
LOC: FSED 14:56
DX: R19.7 Diarrhea, unspecified (principal); R53.1 Weakness
CPT/HCPCS: 80053; 81003; 85025; 99283; J7030

== ENCOUNTER 2020-02-29 10:59 | Emergency (ER) | payer OTHER ==
[~2020-02-29] VITALS: Ht 157.5 cm; Wt 72.6 kg
--- NOTE | 2020-02-29 11:42 | Diagnostic Imaging Report ---
Left humerus, 2 views. Left shoulder, 3 views History: Left shoulder pain Comparison: None available. Discussion: Severe degenerative change of the left glenohumeral joint space is noted with near complete joint space loss, fxqr-nn-enyy articulation, large osteophytes and periarticular sclerosis. There is moderate degenerative change of the acromioclavicular joint. Calcific density at the inferior joint space is noted, nonspecific. There is near complete loss of the acromiohumeral distance suggestive of chronic full-thickness rotator cuff tears. Negative for acute displaced fracture or dislocation of the left shoulder No displaced fracture of the humerus is noted. Visualized lung parenchyma is clear. Soft tissues are unremarkable. IMPRESSION: 1. Severe degenerative changes of the left shoulder joint with oply-eh-mkhn articulation as described above. Question synovial calcifications versus loose body within the joint space. 2. Negative for acute displaced fracture or dislocation of the left shoulder or humerus. Signed by: Pa Varela MD on 02/29/2020 11:39 AM
--- NOTE | 2020-02-29 11:42 | Diagnostic Imaging Report ---
Left humerus, 2 views. Left shoulder, 3 views History: Left shoulder pain Comparison: None available. Discussion: Severe degenerative change of the left glenohumeral joint space is noted with near complete joint space loss, bmay-fj-kbst articulation, large osteophytes and periarticular sclerosis. There is moderate degenerative change of the acromioclavicular joint. Calcific density at the inferior joint space is noted, nonspecific. There is near complete loss of the acromiohumeral distance suggestive of chronic full-thickness rotator cuff tears. Negative for acute displaced fracture or dislocation of the left shoulder No displaced fracture of the humerus is noted. Visualized lung parenchyma is clear. Soft tissues are unremarkable. IMPRESSION: 1. Severe degenerative changes of the left shoulder joint with seag-ag-mjtj articulation as described above. Question synovial calcifications versus loose body within the joint space. 2. Negative for acute displaced fracture or dislocation of the left shoulder or humerus. Signed by: Pa Varela MD on 02/29/2020 11:39 AM
--- OUTSIDE RECORDS SUMMARY | 2020-02-29 11:52 | XMS REPORT | Continuity of Care Document ---
Author Author Ace Paradine TASHI [employer] Address Unknown Phone Unavailable Care Team Providers Care Plant Culture Manager Name Role Phone [employer] Information [facility] Unavailable Un available Problems Problem Status Onset Date Classification Date Reported Comments Source Low back pain 08/10/2018 02/23/2019 [facility] MRI LUMBAR SPINE W-WO CONTRAST DX: LOW B Active 07/29/2018 [facility] Unspecified fall, initial encounter 12/08/2017 12/11/2017 [facility] Dorsalgia, unspecified 12/08/2017 12/11/2017 [facility] FALL Active 12/08/2017 [facility] Spinal stenosis, lumbar region without n eurogenic claudication 02/23/2019 [facility] Wedge compression fracture of T11-T12 ve rtebra, initial encounter for closed fracture 02/23/2019 [facility] Medications Medication Details Route Status Patient Instructions Ordering Provider Order Date Source tramadol hydrochloride 50 MG Oral Tablet 50 mg = 1 tab, PO, Q6H, PRN Pain, X 2 day, # 8 tab, 0 Refill(s) No Longer Active 12/08/2017 [facility] Ibuprofen 400 MG Oral Tablet 4 00 mg = 1 tab, PO, Q6H, PRN Pain or Fever, Take with food, X 5 day, # 20 tab, 0 Refill(s) Active 12/08/2017 [facility] Acetaminophen 325 MG / Hydrocodone [place] trate 5 MG Oral Tablet [Wirtz 5/325] Notes: (Same as: Wirtz 325/5) Do not ex ceed 4gm/day of acetaminophen. Inactive 12/08/2017 [facility] Allergies, Adverse Reactions, Alerts Substance Category Reaction Severity Reaction type Status Date Reported Comments Source No Known Medication Allergies Assertion Drug aller gy [facility] Immunizations No Data Provided for This Section Results Order Name Results Value Reference Range Date Interpretation Comments Source CHEM PANEL POC Creatinine 0.6 0.5 - 1.4 08/05/2018 [facility] CHEM PANEL eGFR 99 08/05/2018 Result Comment: The eGFR is calculated [...] should be multiplied by the estimated BMI. [facility] Pathology Reports No Data Provided for This Section Diagnostic Reports Report Value Date Source Spine lumbar w/wo contrast MRI Clinical Indication: [...] narrowing. IMPRESSION: 1. Posterior fusion spans L3-L5. Alignm ent of the lumbar spine is unchanged. 2. Moderate spinal canal stenosis at L4 -L5. 3. Bilateral foraminal narrowing at L4- L5. 4. Redemonstrated anterior wedge compre ssion fracture T12. This is not significantly changed from the prior study. Enhancing bone marrow edema within T12 is likely reactive in nature. Superimposed acute compression of a chronic compression fracture is less likely but difficult to exclude. 5. Age-indeterminate Schmorl's node aquiles ng the superior endplate of T11. This could be recent or acute in nature. SL: [id number] 08/05/2018 [facility] Hip bilat w pelvis 3/4 views [...] IMPRESSION: No bony abnormality. SL: [id number] 12/08/2017 [facility] Spine lumbar 2 or 3 views DX S tudy: Lumbar spine, 3 views Clinical Indication: Back [...] 1. No acute bony abnormality of the lumb ar spine. 2. Postoperative changes of multilevel f usion in the lower lumbar spine. Paralleling lucency about the L5 transpedicular fixation screws is seen and hardware loosening cannot be excluded. SL: [id number] 12/08/2017 [facility] Consultation Notes No Data Provided for This Section Discharge Summaries No Data Provided for This Section History and Physicals No Data Provided for This Section Vital Signs Vital Sign Value Date Comments Source Systolic (mm Hg) 105 12/08/2017 [facility] Diastolic (mm Hg) 67 12/08/2017 [facility] Heart Rate 85 12/08/2017 [facility] Temperature Oral (F) 98.9 F 12/08/2017 [facility] Respitory Rate 15 12/08/2017 [facility] Weight 75 0 12/08/2017 [facility] Temperature Oral (F) 99.6 F 12/08/2017 [facility] Respitory Rate 18 12/08/2017 [facility] Height 157.48 cm 12/08/2017 [facility] BMI Calculated 30.24 12/08/2017 [facility] Systolic (mm Hg) 98 12/08/2017 [facility] Diastolic (mm Hg) 73 12/08/2017 [facility] Heart Rate 91 12/08/2017 [facility] Encounters Location Location Details Encounter Type Encounter Number Reason For Visit Attending Provider ADM Date DC Date Status Source [facility] [id number] Chiqui Krishnan 12/08/2017 12/08/2017 [facility] [id number] Ren Dacosta 08/05/2018 08/06/2018 [facility] Procedures No Data Provided for This Section Assessment and Plan No Data Provided for This Section Plan of Care No Data Provided for This Section Social History Social History Date Source Social History TypeResponse Smoking Status Heavy tobacco smoker; Type: Cigarettes; Previous treatment: None; Exposure to Tobacco Smoke None; Cigarette Smoking Last 365 Days Yes; Reg Smoking Cessation Counseling No entered on: 12/08/17 12/08/2017 [facility] Family History No Data Provided for This Section Advance Directives No Data Provided for This Section Functional Status No Data Provided for This Section
--- OUTSIDE RECORDS SUMMARY | 2020-02-29 11:52 | XMS REPORT | Summary of Care ---
Author Author [facility] Organization [facility] Address Unknown Phone Unavailable Encounter GRIS Rasmussen(ADVON) [id number] Date(s): 08/05/18 - 08/05/18 [facility] [address] [place] [address]- Encounter Diagnosis Low back pain (Final) - 08/09/18 Spinal stenosis, lumbar region without neurogenic claudication (Final) - Wedge compression fracture of T11-T12 vertebra, initial encounter for closed fra cture (Final) - Discharge Disposition: Home or Self Care Attending Physician: Cristiane Dacosta DO Referring Physician: Ren Dacosta MD Vital Signs No data available for this section Problem List No data available for this section Allergies, Adverse Reactions, Alerts No Known Medication Allergies Medications No data available for this section Results Most recent to 1 oldest [Reference Range]: [...] None; Exposure to Tobacco Smoke None; Cigarette Smokin g Last 365 Days Yes; Reg Smoking Cessation Counseling No entered on: 12/08/17 Assessment and Plan No data available for this section
--- OUTSIDE RECORDS SUMMARY | 2020-02-29 11:53 | XMS REPORT | Continuity of Care Document ---
Author Author [facility] t Organization [facility] Address [address] [place] [address] Phone Unavailable Care Team Providers Care Organizational Psychologist Name Role Phone CAPRI, (NON STAFF) KARON PCP DARI BERG Attphys Unavailable Renita Dacosta Attphys NISHI VARGAS Attphys Unavailable ALBERTO GIPSON Attphys Unavailable Eulogio, Toluwalcaery Florian Attphys [phone] BON FERNANDES Attphys Unavailable [place] GRAY Attphys Unavailable DR BON FERNANDES Admphys Unavailable Payers Payer Name Policy Type Policy Number Effective Date Expiration Date Stacie Cantor Pos [id number] 2018 00:00:00 SOLIS almonte [facility] Problems Condition Name Condition Details Condition Category Status Onset Date Resolution Date Last Treatment Date Treating Clinician Comments Source MRI LUMBAR SPINE W-WO CONTRAST DX: LOW B MRI LUMBAR SPINE W-WO CONTRAST DX: LOW B Active 07/29/2018 [facility] Active 2018-07-29 00:00:00 2018-08-05 08:47:00 [facility] FALL FALL Active 12/08/2017 [facility] Active 2017-12-08 00:00:00 2017-12-08 13:09:00 Ace Kurtz Spinal stenosis, lumbar region without neurogenic louann dication Spinal stenosis, lumbar region without neurogenic claudication 02/23/2019 [facility] Problem 2019-02-23 11:15:23 Ace Kurtz Wedge compression fracture of T11-T12 ve rtebra, initial encounter for closed fracture Wedge compressio n fracture of T11-T12 vertebra, initial encounter for closed fracture 02/23/2019 [facility] Problem 2019-02-23 11:15:23 Ace Kurtz Low back pain Low back pain 08/10/2018 02/23/2019 [facility] Problem 2018-08-10 04:49:37 2019-02-23 11:15:23 2019-02 11:15:23 Ace Kurtz Unspecified fall, initial encounter Unspecified fall, initial encounter 12/08/2017 12/11/2017 [facility] 2017-12-08 05:00:00 2017-12-11 02:41:04 2017-12-11 02:41:04 Fran emoridesi Kurtz Dorsalgia, unspecified Dors algia, unspecified 12/08/2017 12/11/2017 [facility] 2017-12-08 05:00:00 2017 02:41:04 2017-12-11 02:41:04 Ace Kurtz Allergies, Adverse Reactions, Alerts Allergy Name Allergy Type Status Severity Reaction(s) Onset Date Inacti ve Date Treating Clinician Comments Source No Known Allergies DA Active U 2015-11-10 00:00:00 [facility] No Known Medication Allergies No Known Medication Allergies Active [facility] Jerardo Social History Smoking Status Start Date Stop Date Source Social History 2017-12-08 20:15:10 Ace blancas Medications Ordered Medication Name Filled Medication Name Start Date Stop Da te Current Medication? Ordering Clinician Indication Dosage Frequency Signature (SIG) Comments Components Source tramadol hydrochloride 50 MG Oral Tablet 2017-12-08 21:20:00 No 50 mg = 1 tab, PO, Q6H, PRN Pain, X 2 day, # 8 tab, 0 Refill(s) [facility] Jerardo Ibuprofen 400 MG Oral Tablet 2017-12-08 21:19:00 Yes 400 mg = 1 tab, PO, Q6H, PRN Pain or Fever, Take with food, X 5 day, # 20 tab, 0 Refill(s) Ace Kurtz Acetaminophen 325 MG / Hydrocodone Bitartrate 5 MG Oral Tabl et [[place] 5/325] 2017-12-08 17:35:00 No Notes: (Same as: [place] 325/5) Do not exceed 4gm/day of acetaminophen. [facility] Alprazolam (Xanax) 0.5 Mg Tablet Alprazolam (Xanax) 0.5 Mg Tablet Yes .5 Twice A Day as needed [facility] Citalopram Hydrobromide (Celexa) 40 Mg Tablet Citalopr am Hydrobromide (Celexa) 40 Mg Tablet Yes 40 Daily [facility] Hydroxychloroquine Sulfate (Plaquenil) 200 Mg Tablet H ydroxychloroquine Sulfate (Plaquenil) 200 Mg Tablet Yes [facility] Infliximab (Remicade) 100 Mg Vial Infliximab (Remicade) 100 Mg Vial Yes Every 4 Weeks [facility] Methotrexate Sodium (Trexall) 10 Mg Tablet Methotrexat e Sodium (Trexall) 10 Mg Tablet Yes [facility] Millipred 5 Mg Tablet Millipred 5 Mg Tablet Yes 2 Daily [facility] Omeprazole Magnesium (Prilosec Otc) 20 Mg Tablet.dr Craig eprazole Magnesium (Prilosec Otc) 20 Mg Tablet. Yes 40 Twice A Day [facility] Omeprazole Magnesium (Prilosec Otc) 20 Mg Tablet.dr Craig eprazole Magnesium (Prilosec Otc) 20 Mg Tablet. Yes 40 Twice A Day [facility] Sucralfate (Carafate) 1 Gm Tablet Sucralfate (Carafate) 1 Gm Tablet Yes 1 Four Times Daily [facility] Sucralfate (Carafate) 1 Gm/10 Ml Oral.susp Sucralfate (Carafate) 1 Gm/10 Ml Oral.susp Yes 1 Four Times Daily [facility] Tapentadol Hcl (Nucynta Er) 100 Mg Tab.er.12h Tapentad ol Hcl (Nucynta Er) 100 Mg Tab.er.12h Yes 200 Every 8 Hours as needed [facility] Tramadol Hcl (Ultram 50MG) 50 Mg Tab Tramadol Hcl (Ultram 50MG) 50 Mg Tab Yes 50 Every 6 Hours as needed [facility] Oxycodone Hcl/Acetaminophen (Percocet 10-325 Mg Tablet ) 1 Each Tablet, Oxycodone Hcl/Acetaminophen (Percocet 10-325 Mg Tablet) 1 Each Tablet, 2013-07-18 00:00:00 No Every 6 Hours as needed [facility] Prednisolone (Millipred) 5 Mg Tablet, Prednisolone (Millipred) 5 Mg Tablet, 2013-07-18 00:00:00 No [facility] Vital Signs Vital Name Observation Time Observation Value Comments Source Systolic (mm Hg) 2017-12-08 21:33:00 [facility] Diastolic (mm Hg) 2017-12-08 21:33:00 [facility] Heart Rate 2017-12-08 21:33:00 [facility] Temperature Oral (F) 2017-12-08 21:33:00 98.9 F [facility] Respitory Rate 2017-12-08 21:33:00 [facility] Weight 2017-12-08 17:05:00 [facility] Temperature Oral (F) 2017-12-08 17:05:00 99.6 F [facility] Respitory Rate 2017-12-08 17:05:00 [facility] Height 2017-12-08 17:05:00 157.48 cm [facility] BMI Calculated 2017-12-08 17:05:00 [facility] Systolic (mm Hg) 2017-12-08 17:05:00 [facility] [place] Diastolic (mm Hg) 2017-12-08 17:05:00 [facility] [place] Heart Rate 2017-12-08 17:05:00 [facility] Procedures This patient has no known procedures. Encounters Start Date/Time End Date/Time [facility]counter Type [facility] Encounter ID Source 2019-04-15 14:56:00 2019-04-15 16:46:00 Departed Emergency Room [facility] [id number] [facility] 2018-10-19 01:55:00 2018-10-20 11:17:00 Discharged Inpatient (obs) [facility] [id number] [facility] 2018-08-05 06:28:00 2018-08-05 23:59:00 Outpatient Cristiane Dupontbeth [facility] [id number] 2018-08-05 06:28:00 2018-08-05 23:59:00 Outpatient Cristiane Dupontbeth [facility] [id number] 2018-06-10 10:53:00 2018-06-10 10:53:00 Registered Clinic 3 NISHI FERRO [facility] [id number] [facility]. [facility] - Patients [facility] 2018-04-19 12:59:00 2018-04-19 12:59:00 Registered Clinic 3 ALBERTO CASTRO [facility] [id number] [facility]. [facility] - Patients [facility] 2017-12-08 12:05:00 2017-12-08 16:36:00 Outpatient Chiqui Blandonkimberly [facility] [id number] 2017-08-10 11:46:00 2017-08-10 14:39:00 Outpatient Arnold FERNANDES [facility] [id number] [facility] 2017-05-20 11:33:00 2017-05-20 13:40:00 Outpatient Arnold FERNANDES [facility] [id number] [facility] Results Test Description Test Time Test Comments Results Result Comments Source SHOULDER 2+VW LT -HOPD 2020-02-29 11:35:00 [place] [address] Patient Name: TASHI KHAN MR #: [id number] : 1955 Age/Sex: 64/F Req #: [id number] Adm Physician: Ordered by: DARI BERG MD Report #: [id number] Location: [facility] Room/Bed: Procedure: [id number] HOPD/SHOULDER 2+VW LT -HOPD Exam Date: 02/29/20 Exam Time: 1134 REPORT STATUS: Signed Left humerus, 2 views. Left shoulder, 3 views History: Left shoulder pain Comparison: None available. Discussion: Severe degenerative change of the left glenohumeral joint space is noted with near complete joint space loss, bone- on-bone articulation, large osteophytes and periarticular sclerosis. There is moderate degenerative change of the acromioclavicular joint. Calcific density at the inferior joint space is noted, nonspecific. There is near complete loss of the acromiohumeral distance suggestive of chronic full-thickness rotator cuff tears. Negative for acute displaced fracture or dislocation of the left shoulder No displaced fracture of the humerus is noted. Visualized lung parenchyma is clear. Soft tissues are unremarkable. IMPRESSION: 1. Severe degenerative changes of the left shoulder joint with daps-cu-lwqp articulation as described above. Question synovial calcifications versus loose body within the joint space. 2. Negative for acute displaced fracture or dislocation of the left shoulder or humerus. Signed by: Anastasia Varela MD on 02/29/2020 11:39 AM Dictated By: ANASTASIA VARELA MD 113 Transcribed By: JEFFRY on 02/29/20 1139 COPY TO: DARI BERG MD HUMERUS 2 VIEW LT - HOPD 2020-02-29 11:35:00 [place] [address] Patient Name: TASHI KHAN MR #: [id number] : 1955 Age/Sex: 64/F Req #: [id number] Adm Physician: Ordered by: DARI BERG MD Report #: [id number] Location: [facility] Room/Bed: Procedure: [id number] HOPD/HUMERUS 2 VIEW LT - HOPD Exam Date: 02/29/20 Exam Time: 1133 REPORT STATUS: Signed Left humerus, 2 views. Left shoulder, 3 views History: Left shoulder pain Comparison: None available. Discussion: Severe degenerative change of the left glenohumeral joint space is noted with near complete joint space loss, bon e-on-bone articulation, large osteophytes and periarticular sclerosis. There is moderate degenerative change of the acromioclavicular joint. Calcific density at the inferior joint space is noted, nonspecific. There is near complete loss of the acromiohumeral distance suggestive of chronic full- thickness rotator cuff tears. Negative for acute displaced fracture or dislocation of the left shoulder No displaced fracture of the humerus is noted. Visualized lung parenchyma is clear. Soft tissues are unremarkable. IMPRESSION: 1. Severe degenerative changes of the left shoulder joint with xifs-jp-qgas articulation as described above. Question synovial calcifications versus loose body within the joint space. 2. Negative for acute displaced fracture or dislocation of the left shoulder or humerus. Signed by: Anastasia Varela MD on 02/29/2020 11:39 AM Dictated By: ANASTASIA VARELA MD 113 Transcribed By: JEFFRY on 02/29/201138 COPY TO: DARI BERG MD - XR SHOULDER 1 V RT 2019-12-16 07:27:00 Skip charles Name: TASHI KHAN Unit No: [id number] EXAMS: CPT CODE: [id number] XR SHOULDER 1 [place] [address] IMAGES PROVIDED: Single AP view of the right shoulder FINDINGS: Postoperative changes of right reverse total shoulder arthoplasty demonstrated without evidence of immediate complication. No acute fracture. Visualized lung is clear. IMPRESSION: Right reverse total shoulder arthoplasty without immediate complication. at 0727 Reported and signed by: Chaim Reddy M.D. CC: Cade BEE MD; Chele Merrill MD Technologist: GARETH YEH RT(R) Transcribed D/ (0727) ClarenceSLJ [facility] NAME: TASHI KHAN [address] [facility] [address] PHYS: Cade RICKETTS MD : 1955 AGE: 64 SEX: F [place] [address] LOC: Y.315 A PHONE #: [phone] EXAM DATE: 12/14/2019 STATUS: DIS IN FAX #: [phone] RAD #: D/C DT 12/15/2019 PAGE 1 Signed Report Patient Name: TASHI KHAN Unit No: [id number] EXAMS: CPT CODE: [id number] XR SHOULDER 1 V RT 63081 <Continued> Orig Print D/T: S: 12/16/2019 (0730) [facility] NAME: TASHI KHAN [address] [place] [address] PHYS: Cade RICKETTS MD : 1955 AGE: 64 SEX: F [place] [address] LOC: Y.315 A PHONE #: [phone] EXAM DATE: 12/14/2019 STATUS: DIS IN FAX #: [phone] RAD #: D/C DT 12/15/2019 PAGE 2 Signed Report BASIC METABOLIC PANEL 2019-12-15 06:23:00 Test Item SODIUM (test code = NA) 142 mmol/L 136-145 N POTASSIUM (test code = K) 4.4 mmol/L 3.5-5.1 N CHLORIDE (test code = CL) 105.0 mmol/L 98-107 N CARBON DIOXIDE (test code = CO2) 26.1 mmol/L 21-32 N GLUCOSE (test code = GLU) 115 mg/dL 70-110 H BLOOD UREA NITROGEN (test code = BUN) 15 mg/dL 7-18 N GLOMERULAR FILTRATION RATE (test code = GFR) 83.4 >60 Unit of measure: mL/min/1.73 [id number] Range:Healthy Adults >90 mL/min/1.73 m2 For Chronic Kidney Disease: Stage II Mild Decrease in GFR 60-90 Stage III Moderate Decrease in GFR 30-59 Stage IV Severe Decrease in GFR 15-29 Stage V Kidney Failure <15 CREATININE (test code = CREAT) 0.71 mg/dL 0.55-1.30 N CALCIUM (test code = CA) 8.0 mg/dL 8.2-10.1 L CBC W/AUTO [id number] 05:44:00* Test Item Value Reference Range Interpretation Comments WHITE BLOOD CELL (test code = WBC) 8.0 K/mm3 5.8-11.0 N RED BLOOD CELL (test code = RBC) 3.31 M/mm3 4.2-5.4 L HEMOGLOBIN (test code = HGB) 9.6 g/dL 12-16 L HEMATOCRIT (test code = HCT) 29.6 % 37-47 L MEAN CELL VOLUME (test code = MCV) 89 fL 80-98 N MEAN CELL HGB (test code = MCH) 29.0 pg 27-34 N MEAN CELL HGB CONCENTRATION (test code = MCHC) 32.4 g/dL 30.8-34 .1 N RED CELL DISTRIBUTION WIDTH (test code = RDW) 14.2 % 11-16 N PLT (test code = PLT) 220 K/mm3 130-400 N MEAN PLATELET VOLUME (test code = MPV) 8.8 fL 8.9-12.1 L NEUTROPHIL % (test code = NT%) 73.2 % 45-70 H LYMPHOCYTE % (test code = LY%) 18.6 % 20-40 L MONOCYTE % (test code = MO%) 7.6 % 3-10 N EOSINOPHIL % (test code = EO%) 0.0 % 1-5 L BASOPHIL % (test code = BA%) 0.3 % 0.0-1.1 N NEUTROPHIL # (test code = NT#) 5.85 K/mm3 2.00-7.50 N LYMPHOCYTE # (test code = LY#) 1.49 K/mm3 1.50-4.00 L MONOCYTE # (test code = MO#) 0.61 K/mm3 0.2-0.8 N EOSINOPHIL # (test code = EO#) 0.00 K/mm3 0.04-0.4 L BASOPHIL # (test code = BA#) 0.02 K/mm3 0.02-0.10 N MANUAL DIFF REQUIRED (test code = MDIFF) NO MANUAL DIFF NUCLEATED RED BLOOD CELL (test code = NRBC) 0 % 0-0 N SPECIMEN COMMENT: POD #1COMPREHENSIVE METABOLIC [id number] 17:14:00* Test Item Value Reference Range Interpretation Comments SODIUM (test code = NA) 140 mmol/L 136-145 N POTASSIUM (test code = K) 4.5 mmol/L 3.5-5.1 N CHLORIDE (test code = CL) 101.0 mmol/L 98-107 N CARBON DIOXIDE (test code = CO2) 29.1 mmol/L 21-32 N GLUCOSE (test code = GLU) 86 mg/dL 70-110 N BLOOD UREA NITROGEN (test code = BUN) 14 mg/dL 7-18 N GLOMERULAR FILTRATION RATE (test code = GFR) 69.7 >60 Unit of measure: mL/min/1.73 g1Qqhafjpgt Range:Healthy Adults >90 mL/min/1.73 m2 For Chronic Kidney Disease: Stage II Mild Decrease in GFR 60-90 Stage III Moderate Decrease in GFR 30-59 Stage IV Severe Decrease in GFR 15-29 Stage V Kidney Failure <15 CREATININE (test code = CREAT) 0.83 mg/dL 0.55-1.30 N TOTAL PROTEIN (test code = PROT) 7.5 g/dL 6.4-8.2 N ALBUMIN (test code = ALB) 3.7 g/dL 3.4-5.0 N GLOBULIN (test code = GLOB) 3.8 g/dL 2.2-4.2 N ALBUMIN/GLOBULIN RATIO (test code = A/G) 1.0 0.7-2.0 N CALCIUM (test code = CA) 8.5 mg/dL 8.2-10.1 N BILIRUBIN TOTAL (test code = BILT) 0.30 mg/dL 0.2-1.00 N SGOT/AST (test code = AST) 15.0 U/L 15-37 N SGPT/ALT (test code = ALT) 14.0 U/L 12-78 N P lease note new normal range. ALKALINE PHOSPHATASE TOTAL (test code = ALKP) 101 U/L 46-116 N PROTHROMBIN [id number] 16:52:00* Test Item Value Reference Range Interpretation Comments PROTHROMBIN TIME PATIENT (test code = PTP) 12.7 secs 10.1-12.5 H INTERNATIONAL NORMAL RATIO (test code = INR) 1.14 <2.0 RECOMMENDED THERAPEUTIC RANGE FOR ORAL ANTICOAGULANTTREATMENT: CONDITION INRProphylaxis of venous thrombosis in 2.0 - 3.0 high-risk medical or surgical patientsTreatment of venous thrombosis 2.0 - 3.0Prevention of embolism 2.0 - 3.0Prevention of recurrent embolism, or 3.0 - 4.5 patients with mechanical prosthetic intravascular valves IS PATIENT ON ANTICOAGULANTS ? NHas Lab been notified if Patient is on Heparin D rip? NOTHROMBOPLASTIN TIME [id number] 16:52:00* Test Item Value Reference Range Interpretation Comments PTT ACTIVATED (test code = APTT) 33.8 secs 24.9-37.0 N IS PATIENT ON ANTICOAGULANTS ? NHas Lab been notified if Patient is on Heparin D rip? NOCBC W/AUTO [id number] 16:45:00* Test Item Value Reference Range Interpretation Comments WHITE BLOOD CELL (test code = WBC) 8.4 K/mm3 5.8-11.0 N RED BLOOD CELL (test code = RBC) 3.77 M/mm3 4.2-5.4 L HEMOGLOBIN (test code = HGB) 11.2 g/dL 12-16 L HEMATOCRIT (test code = HCT) 34.1 % 37-47 L MEAN CELL VOLUME (test code = MCV) 91 fL 80-98 N MEAN CELL HGB (test code = MCH) 29.7 pg 27-34 N MEAN CELL HGB CONCENTRATION (test code = MCHC) 32.8 g/dL 30.8-34 .1 N RED CELL DISTRIBUTION WIDTH (test code = RDW) 14.6 % 11-16 N PLT (test code = PLT) 286 K/mm3 130-400 N MEAN PLATELET VOLUME (test code = MPV) 8.5 fL 8.9-12.1 L NEUTROPHIL % (test code = NT%) 46.3 % 45-70 N LYMPHOCYTE % (test code = LY%) 43.8 % 20-40 H MONOCYTE % (test code = MO%) 6.7 % 3-10 N EOSINOPHIL % (test code = EO%) 1.9 % 1-5 N BASOPHIL % (test code = BA%) 1.1 % 0.0-1.1 N NEUTROPHIL # (test code = NT#) 3.88 K/mm3 2.00-7.50 N LYMPHOCYTE # (test code = LY#) 3.67 K/mm3 1.50-4.00 N MONOCYTE # (test code = MO#) 0.56 K/mm3 0.2-0.8 N EOSINOPHIL # (test code = EO#) 0.16 K/mm3 0.04-0.4 N BASOPHIL # (test code = BA#) 0.09 K/mm3 0.02-0.10 N MANUAL DIFF REQUIRED (test code = MDIFF) NO MANUAL DIFF NUCLEATED RED BLOOD CELL (test code = NRBC) 0 % 0-0 N - CT UP EXTREM W/O CONT [id number] 16:07:00 Patient Name: TASHI KHAN Unit No: [id number] EXAMS: CPT CODE: [id number] CT UP EXTREM W/[place] [address] CT OF THE RIGHT SHOULDER WITH SAGITTAL AND CORONAL RECONSTRUCTIONS DIAGNOSIS: 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 There has been progressive bony erosion since the previous examination of February 19, 2016. COMMENT: COMPARISON: February 19, 2016 Scans were performed with thin sections and reconstructions were obtained. CT radiation dose optimization is achieved for this examination by the use of a CT protocol in accordance with ACR practice standards and adherence to data warehousing manager's recommendations. Arthritis is present with joint destruction as described. Atrophy of the supraspinatus, infraspinatus and subscapularis muscles is noted. at 1607 Reported and signed by: Chris Meza MD CC: Chele Merrill MD; Karon Kelley MD Technologist: Randell GunterRT(R) CTDI: DLP: Trnscrpt: 11/24/2019 (1607) [facility] NAME: TASHI KHAN [address] PHYS: EDChele Arechiga : 1955 AGE: 64 SEX: F [place], [place] [address] A CCT NO: [id number] LOC: Y.RAD PHONE #: [phone] EXAM DATE: 11/24/2019 STATUS: REG CLI FAX #: [phone] RAD #: D/C DT PAGE 1 Signed Report Patient Name: TASHI KHAN Unit No: [id number] EXAMS: CPT CO DE: [id number] [place] UP EXTREM W/[place] [address] <Continued> Orig Print D/T: S: 11/24/2019 (1610) [facility] NAME: TASHI KHAN [address] [facility] [address] PHYS: Chele Wu : 1955 AGE: 64 SEX: F [place], [place] [address] LOC: Y.RAD PHONE #: [phone] EXAM DATE: 11/24/2019 STATUS: REG CLI FAX #: [phone] RAD #: D/C DT PAGE 2 Signed Report Bedside [id number] 08:08:00* Test Item Value Reference Range Interpretation Comments Bedside Glucose (test code = 42284-1) 105 70-120 Meter ID: [id number] [facility] 2018-10-20 08:08:00* Test Item Value Reference Range Interpretation Comments Bedside Glucose (test code = 00728-6) 105 70-120 Meter ID: [id number] Health [facility] Worthodium Level 2018-10-19 07:21:00* Test Item Value Reference Range Interpretation Comments Sodium Level (test code = 2951-2) 142 136-145 [facility]lake[facility] [id number] 07:21:00* Test Item Value Reference Range Interpretation Comments Potassium Level (test code = 2823-3) 3.5 3.5-5.1 [facility]lakeChloride [id number] 07:21:00* Test Item Value Reference Range Interpretation Comments Chloride Level (test code = 2075-0) 111 98-107 H [facility] SouthlakeCarbon Dioxide [id number] 07:21:00* Test Item Value Reference Range Interpretation Comments Carbon Dioxide Level (test code = 2028-9) 24 22-29 [facility] SouthlakeAnion [id number] 07:21:00* Test Item Value Reference Range Interpretation Comments Anion Gap (test code = 45327-9) 10.5 8-16 [facility]lakeBlood Urea [id number] 07:21:00* Test Item Value Reference Range Interpretation Comments Blood Urea Nitrogen (test code = 3094-0) 6 7-26 L [facility]lakeCreatinine2019-04-09 07:21:00* Test Item Value Reference Range Interpretation Comments Creatinine (test code = 2160-0) 0.66 0.57-1.11 [facility]lakeBUN/Creatinine [id number] 07:21:00* Test Item Value Reference Range Interpretation Comments BUN/Creatinine Ratio (test code = 3097-3) 9 6-25 [facility] SouthlakeEstimat Glomerular Filtration Rate 2018-10-19 07:21:00* Test Item Value Reference Range Interpretation Comments Estimat Glomerular Filtration Rate (test code = 403655631) > 60 >60 Ranges were taken from the National Kidney Disease Education Program and the [facility] Kidney Foundation literature.Reference ranges:60 or greater: Kkvpzv04-26 ( for 3 consecutive months): Chronic kidney disease 15 or less: Kidney failureTexas Health Harris [facility] Hospital SouthlakeGlucose [id number] 07:21:00* Test Item Value Reference Range Interpretation Comments Glucose Level (test code = BTT8752) 69 74-118 L [facility] SouthlakeCalcium [id number] 07:21:00* Test Item Value Reference Range Interpretation Comments Calcium Level (test code = 33200-2) 8.9 8.4-10.2 [facility] Worthodium [id number] 07:21:00* Test Item Value Reference Range Interpretation Comments Sodium Level (test code = 2951-2) 142 136-145 [facility]lakePotassium [id number] 07:21:00* Test Item Value Reference Range Interpretation Comments Potassium Level (test code = 2823-3) 3.5 3.5-5.1 [facility]lakeChloride [id number] 07:21:00* Test Item Value Reference Range Interpretation Comments Chloride Level (test code = 2075-0) 111 98-107 H [facility] SouthlakeCarbon Dioxide [id number] 07:21:00* Test Item Value Reference Range Interpretation Comments Carbon Dioxide Level (test code = 2028-9) 24 22-29 [facility] SouthlakeAnion [id number] 07:21:00* Test Item Value Reference Range Interpretation Comments Anion Gap (test code = 14434-5) 10.5 8-16 [facility]lakeBlood Urea [id number] 07:21:00* Test Item Value Reference Range Interpretation Comments Blood Urea Nitrogen (test code = 3094-0) 6 7-26 L [facility] SouthlakeCreatinine2019-04-09 07:21:00* Test Item Value Reference Range Interpretation Comments Creatinine (test code = 2160-0) 0.66 0.57-1.11 [facility]lakeBUN/Creatinine Kzjqs1920-80-08 07:21:00* Test Item Value Reference Range Interpretation Comments BUN/Creatinine Ratio (test code = 3097-3) 9 6-25 [facility]lakeEstimat Glomerular Filtration Rate 2018-10-19 07:21:00* Test Item Value Reference Range Interpretation Comments Estimat Glomerular Filtration Rate (test code = [id number]) > 60 >60 Ranges were taken from the National Kidney Disease Education Program and the [facility] literature.Reference ranges:60 or greater: Sjdpmu65-04 ( for 3 consecutive months): Chronic kidney disease 15 or less: Kidney failureTexas [facility]lakeGlucose Nzruc8533-61-62 07:21:00* Test Item Value Reference Range Interpretation Comments Glucose Level (test code = WGS2684) 69 74-118 L [facility]lakeCalcium Jgeyg5662-85-64 07:21:00* Test Item Value Reference Range Interpretation Comments Calcium Level (test code = 19563-7) 8.9 8.4-10.2 [facility]lakeWhite Blood Ootpe5477-31-65 06:51:00* Test Item Value Reference Range Interpretation Comments White Blood Count (test code = 6690-2) 4.80 4.8-10.8 [facility]lakeRed Blood Hdigb7981-51-09 06:51:00* Test Item Value Reference Range Interpretation Comments Red Blood Count (test code = 789-8) 3.51 3.6-5.1 L [facility]lakeHemoglobin2019-04-09 06:51:00* Test Item Value Reference Range Interpretation Comments Hemoglobin (test code = 58559-8) 10.0 12.0-16.0 L [facility]lakeHematocrit2019-04-09 06:51:00* Test Item Value Reference Range Interpretation Comments Hematocrit (test code = 4544-3) 32.0 34.2-44.1 L [facility] SouthlakeMean Corpuscular Yrviwc0609-36-58 06:51:00* Test Item Value Reference Range Interpretation Comments Mean Corpuscular Volume (test code = 787-2) 91.2 81-99 [facility]lakeMean Corpuscular Ebyluxiase9157-36-02 06:51:00* Test Item Value Reference Range Interpretation Comments Mean Corpuscular Hemoglobin (test code = 785-6) 28.5 28-32 [facility] Concent 2018-10-19 06:51:00* Test Item Value Reference Range Interpretation Comments Mean Corpuscular Hemoglobin Concent (test code = 786-4) 31.3 31-35 [facility]lakeRed Cell Distribution Vpcgu1602-37-81 06:51:00* Test Item Value Reference Range Interpretation Comments Red Cell Distribution Width (test code = 24063-4) 13.2 11.7 -14.4 [facility] SouthlakePlatelet Zkbtx4246-18-50 06:51:00* Test Item Value Reference Range Interpretation Comments Platelet Count (test code = 777-3) 228 140-360 [facility]lakeNeutrophils (%) (Auto)2018-10-19 06:51:00 * Test Item Value Reference Range Interpretation Comments Neutrophils (%) (Auto) (test code = 82032-9) 34.9 38.7-80.0 L [facility] SouthlakeLymphocytes (%) (Auto)2018-10-19 06:51:00 * Test Item Value Reference Range Interpretation Comments Lymphocytes (%) (Auto) (test code = 736-9) 49.4 18.0-39.1 H [facility]lakeMonocytes (%) (Auto)2018-10-19 06:51:00* Test Item Value Reference Range Interpretation Comments Monocytes (%) (Auto) (test code = 5905-5) 11.7 4.4-11.3 H [facility]lakeEosinophils (%) (Auto)2018-10-19 06:51:00 * Test Item Value Reference Range Interpretation Comments Eosinophils (%) (Auto) (test code = 713-8) 2.3 0.0-6.0 [facility]lakeBasophils (%) (Auto)2018-10-19 06:51:00* Test Item Value Reference Range Interpretation Comments Basophils (%) (Auto) (test code = 706-2) 1.5 0.0-1.0 H [facility] SouthlakeIM GRANULOCYTES %2018-10-19 06:51:00* Test Item Value Reference Range Interpretation Comments IM GRANULOCYTES % (test code = IM GRANULOCYTES %) 0.2 0.0- 1.0 [facility]lakeNeutrophils # (Auto)2018-10-19 06:51:00* Test Item Value Reference Range Interpretation Comments Neutrophils # (Auto) (test code = 751-8) 1.7 2.1-6.9 L [facility]lakeLymphocytes # (Auto)2018-10-19 06:51:00* Test Item Value Reference Range Interpretation Comments Lymphocytes # (Auto) (test code = 37440-9) 2.4 1.0-3.2 [facility]lakeMonocytes # (Auto)2018-10-19 06:51:00* Test Item Value Reference Range Interpretation Comments Monocytes # (Auto) (test code = 742-7) 0.6 0.2-0.8 [facility]lakeEosinophils # (Auto)2018-10-19 06:51:00* Test Item Value Reference Range Interpretation Comments Eosinophils # (Auto) (test code = 711-2) 0.1 0.0-0.4 [facility]lakeBasophils # (Auto)2018-10-19 06:51:00* Test Item Value Reference Range Interpretation Comments Basophils # (Auto) (test code = 704-7) 0.1 0.0-0.1 [facility] SouthlakeAbsolute Immature Granulocyte (auto 2018-10-19 06:51:00* Test Item Value Reference Range Interpretation Comments Absolute Immature Granulocyte (auto (nica t code = Absolute Immature Granulocyte (auto) 0.01 0-0.1 [facility]lakeWhite Blood Pnqxk5564-93-92 06:51:00* Test Item Value Reference Range Interpretation Comments White Blood Count (test code = 6690-2) 4.80 4.8-10.8 [facility]lakeRed Blood Pydhv0426-69-27 06:51:00* Test Item Value Reference Range Interpretation Comments Red Blood Count (test code = 789-8) 3.51 3.6-5.1 L [facility]lakeHemoglobin2019-04-09 06:51:00* Test Item Value Reference Range Interpretation Comments Hemoglobin (test code = 21568-5) 10.0 12.0-16.0 L [facility]lakeHematocrit2019-04-09 06:51:00* Test Item Value Reference Range Interpretation Comments Hematocrit (test code = 4544-3) 32.0 34.2-44.1 L [facility] SouthlakeMean Corpuscular Mqjqlr3987-82-92 06:51:00* Test Item Value Reference Range Interpretation Comments Mean Corpuscular Volume (test code = 787-2) 91.2 81-99 [facility]lakeMean Corpuscular Ddwmtxwpvn1930-61-02 06:51:00* Test Item Value Reference Range Interpretation Comments Mean Corpuscular Hemoglobin (test code = 785-6) 28.5 28-32 [facility]lakeMean Corpuscular Hemoglobin Concent 2018-10-19 06:51:00* Test Item Value Reference Range Interpretation Comments Mean Corpuscular Hemoglobin Concent (test code = 786-4) 31.3 31-35 [facility] SouthlakeRed Cell Distribution Hjzsj6446-57-61 06:51:00* Test Item Value Reference Range Interpretation Comments Red Cell Distribution Width (test code = 13521-8) 13.2 11.7 -14.4 [facility] SouthlakePlatelet Plzul3395-76-30 06:51:00* Test Item Value Reference Range Interpretation Comments Platelet Count (test code = 777-3) 228 140-360 [facility]lakeNeutrophils (%) (Auto)2018-10-19 06:51:00 * Test Item Value Reference Range Interpretation Comments Neutrophils (%) (Auto) (test code = 46082-4) 34.9 38.7-80.0 L [facility] SouthlakeLymphocytes (%) (Auto)2018-10-19 06:51:00 * Test Item Value Reference Range Interpretation Comments Lymphocytes (%) (Auto) (test code = 736-9) 49.4 18.0-39.1 H [facility]lakeMonocytes (%) (Auto)2018-10-19 06:51:00* Test Item Value Reference Range Interpretation Comments Monocytes (%) (Auto) (test code = 5905-5) 11.7 4.4-11.3 H [facility]lakeEosinophils (%) (Auto)2018-10-19 06:51:00 * Test Item Value Reference Range Interpretation Comments Eosinophils (%) (Auto) (test code = 713-8) 2.3 0.0-6.0 [facility]lakeBasophils (%) (Auto)2018-10-19 06:51:00* Test Item Value Reference Range Interpretation Comments Basophils (%) (Auto) (test code = 706-2) 1.5 0.0-1.0 H [facility]lakeIM GRANULOCYTES %2018-10-19 06:51:00* Test Item Value Reference Range Interpretation Comments IM GRANULOCYTES % (test code = IM GRANULOCYTES %) 0.2 0.0- 1.0 [facility]lakeNeutrophils # (Auto)2018-10-19 06:51:00* Test Item Value Reference Range Interpretation Comments Neutrophils # (Auto) (test code = 751-8) 1.7 2.1-6.9 L [facility] SouthlakeLymphocytes # (Auto)2018-10-19 06:51:00* Test Item Value Reference Range Interpretation Comments Lymphocytes # (Auto) (test code = 91843-1) 2.4 1.0-3.2 [facility]lakeMonocytes # (Auto)2018-10-19 06:51:00* Test Item Value Reference Range Interpretation Comments Monocytes # (Auto) (test code = 742-7) 0.6 0.2-0.8 [facility]lakeEosinophils # (Auto)2018-10-19 06:51:00* Test Item Value Reference Range Interpretation Comments Eosinophils # (Auto) (test code = 711-2) 0.1 0.0-0.4 [facility]lakeBasophils # (Auto)2018-10-19 06:51:00* Test Item Value Reference Range Interpretation Comments Basophils # (Auto) (test code = 704-7) 0.1 0.0-0.1 [facility] SouthlakeAbsolute Immature Granulocyte (auto 2018-10-19 06:51:00* Test Item Value Reference Range Interpretation Comments Absolute Immature Granulocyte (auto (nica t code = Absolute Immature Granulocyte (auto) 0.01 0-0.1 [facility] SouthlakeTotal Mpelvfftp5144-05-60 17:32:00* Test Item Value Reference Range Interpretation Comments Total Bilirubin (test code = 1975-2) 0.3 0.2-1.2 [facility] SouthlakeAspartate Amino Transf (AST/SGOT) 2018-10-18 17:32:00* Test Item Value Reference Range Interpretation Comments Aspartate Amino Transf (AST/SGOT) (test code = Aspartate Amino Transf (AST/SGOT)) 19 5-34 [facility] SouthlakeAlanine Aminotransferase (ALT/SGPT) 2018-10-18 17:32:00* Test Item Value Reference Range Interpretation Comments Alanine Aminotransferase (ALT/SGPT) (test code = 1742-6) 9 0-55 [facility] SouthlakeTotal Uudyydc6159-73-75 17:32:00* Test Item Value Reference Range Interpretation Comments Total Protein (test code = 2885-2) 7.3 6.5-8.1 [facility] SouthlakeAlbumin2019-04-08 17:32:00* Test Item Value Reference Range Interpretation Comments Albumin (test code = 1751-7) 3.6 3.5-5.0 [facility] SouthlakeGlobulin2019-04-08 17:32:00* Test Item Value Reference Range Interpretation Comments Globulin (test code = 19050-4) 3.7 2.3-3.5 H [facility] SouthlakeAlbumin/Globulin Fzcgc0328-78-94 17:32:00 * Test Item Value Reference Range Interpretation Comments Albumin/Globulin Ratio (test code = 1759-0) 1.0 0.8-2.0 [facility] SouthlakeAlkaline Xssifunjjna0578-84-91 17:32:00* Test Item Value Reference Range Interpretation Comments Alkaline Phosphatase (test code = 6768-6) 110 40-150 [facility] SouthlakeAmylase Xdvua0503-46-86 17:32:00* Test Item Value Reference Range Interpretation Comments Amylase Level (test code = 1798-8) 21 25-125 L [facility] SouthlakeLipase2019-04-08 17:32:00* Test Item Value Reference Range Interpretation Comments Lipase (test code = 3040-3) 6 8-78 L [facility] SouthlakeTotal Csrytfxmt7763-58-45 17:32:00* Test Item Value Reference Range Interpretation Comments Total Bilirubin (test code = 1975-2) 0.3 0.2-1.2 [facility] SouthlakeAspartate Amino Transf (AST/SGOT) 2018-10-18 17:32:00* Test Item Value Reference Range Interpretation Comments Aspartate Amino Transf (AST/SGOT) (test code = Aspartate Amino Transf (AST/SGOT)) 19 5-34 [facility] SouthlakeAlanine Aminotransferase (ALT/SGPT) 2018-10-18 17:32:00* Test Item Value Reference Range Interpretation Comments Alanine Aminotransferase (ALT/SGPT) (test code = 1742-6) 9 0-55 [facility]lakeTotal Mtejfyc1042-73-81 17:32:00* Test Item Value Reference Range Interpretation Comments Total Protein (test code = 2885-2) 7.3 6.5-8.1 [facility] SouthlakeAlbumin2019-04-08 17:32:00* Test Item Value Reference Range Interpretation Comments Albumin (test code = 1751-7) 3.6 3.5-5.0 [facility]lakeGlobulin2019-04-08 17:32:00* Test Item Value Reference Range Interpretation Comments Globulin (test code = 46981-5) 3.7 2.3-3.5 H [facility]lakeAlbumin/Globulin Xupkk4312-17-48 17:32:00 * Test Item Value Reference Range Interpretation Comments Albumin/Globulin Ratio (test code = 1759-0) 1.0 0.8-2.0 [facility] SouthlakeAlkaline Ytuwkawhdzf6853-28-77 17:32:00* Test Item Value Reference Range Interpretation Comments Alkaline Phosphatase (test code = 6768-6) 110 40-150 [facility] SouthlakeAmylase Whikz1584-03-94 17:32:00* Test Item Value Reference Range Interpretation Comments Amylase Level (test code = 1798-8) 21 25-125 L [facility] SouthlakeLipase2019-04-08 17:32:00* Test Item Value Reference Range Interpretation Comments Lipase (test code = 3040-3) 6 8-78 L [facility] SouthlakeUrine OYQ7053-04-11 14:22:00* Test Item Value Reference Range Interpretation Comments Urine WBC (test code = 5821-4) NONE 0-5 [facility] SouthlakeUrine GGS8230-54-45 14:22:00* Test Item Value Reference Range Interpretation Comments Urine RBC (test code = 89875-9) NONE 0-5 [facility] SouthlakeUrine Nsjnqrkf9250-07-49 14:22:00* Test Item Value Reference Range Interpretation Comments Urine Bacteria (test code = 08968-5) MODERATE NONE H [facility] SouthlakeUrine Epithelial Jpuvn1138-12-44 14:22:00 * Test Item Value Reference Range Interpretation Comments Urine Epithelial Cells (test code = 12986-1) MANY NONE [facility] SouthlakeUrine Amorphous Fhrxbpvn4357-90-31 14:22:00* Test Item Value Reference Range Interpretation Comments Urine Amorphous Sediment (test code = 8246-1) FEW FEW [facility] SouthlakeUrine JZM4911-43-79 14:22:00* Test Item Value Reference Range Interpretation Comments Urine WBC (test code = 5821-4) NONE 0-5 [facility] SouthlakeUrine XRO2680-45-46 14:22:00* Test Item Value Reference Range Interpretation Comments Urine RBC (test code = 88441-1) NONE 0-5 [facility] SouthlakeUrine Slczixnd9874-33-22 14:22:00* Test Item Value Reference Range Interpretation Comments Urine Bacteria (test code = 80723-4) MODERATE NONE H [facility] SouthlakeUrine Epithelial Cegmf9348-10-34 14:22:00 * Test Item Value Reference Range Interpretation Comments Urine Epithelial Cells (test code = 37023-8) MANY NONE [facility] SouthlakeUrine Amorphous Mnvourka7287-70-84 14:22:00* Test Item Value Reference Range Interpretation Comments Urine Amorphous Sediment (test code = 8246-1) FEW FEW [facility] SouthlakeUrine Vcacc8060-84-99 14:13:00* Test Item Value Reference Range Interpretation Comments Urine Color (test code = 5778-6) YELLOW YELLOW [facility] SouthlakeUrine Qstpauu7917-93-81 14:13:00* Test Item Value Reference Range Interpretation Comments Urine Clarity (test code = 20350-2) SL CLOUDY CLEAR [facility] Specific Gawdxqr4838-97-98 14:13:00 * Test Item Value Reference Range Interpretation Comments Urine Specific [place] (test code = 5811-5) 1.025 1.010-1.02 5 [facility] lR2059-31-54 14:13:00* Test Item Value Reference Range Interpretation Comments Urine pH (test code = 36902-2) 6 5-7 [facility] Leukocyte Oriikkxl4113-39-43 14:13:00* Test Item Value Reference Range Interpretation Comments Urine Leukocyte Esterase (test code = 5799-2) TRACE NEGATIVE H [facility] Uepfexy7041-50-86 14:13:00* Test Item Value Reference Range Interpretation Comments Urine Nitrite (test code = 26636-0) NEGATIVE NEGATIVE [facility] Utuoeli0707-45-67 14:13:00* Test Item Value Reference Range Interpretation Comments Urine Protein (test code = 5804-0) TRACE NEGATIVE H [facility] Glucose (UA)2018-10-18 14:13:00* Test Item Value Reference Range Interpretation Comments Urine Glucose (UA) (test code = 2349-9) NEGATIVE NEGATIVE [facility] Glsjkwv5429-10-62 14:13:00* Test Item Value Reference Range Interpretation Comments Urine Ketones (test code = 64015-6) TRACE NEGATIVE H [facility] Lzdcyotgstej6056-88-26 14:13:00* Test Item Value Reference Range Interpretation Comments Urine Urobilinogen (test code = 13396-7) 0.2 0.2-1 [facility] Gkrbziess0173-74-55 14:13:00* Test Item Value Reference Range Interpretation Comments Urine Bilirubin (test code = 1978-6) 1+ NEGATIVE H [facility] Qhgpj6622-60-34 14:13:00* Test Item Value Reference Range Interpretation Comments Urine Blood (test code = 64408-8) NEGATIVE NEGATIVE [facility]lakeUrine Lwvwz5456-06-79 14:13:00* Test Item Value Reference Range Interpretation Comments Urine Color (test code = 5778-6) YELLOW YELLOW [facility]lakeUrine Tyzgqan9250-25-33 14:13:00* Test Item Value Reference Range Interpretation Comments Urine Clarity (test code = 04808-5) SL CLOUDY CLEAR [facility]lakeUrine Specific Ufupgpv4800-75-90 14:13:00 * Test Item Value Reference Range Interpretation Comments Urine Specific [place] (test code = 5811-5) 1.025 1.010-1.02 5 [facility] SouthlakeUrine wK0626-82-05 14:13:00* Test Item Value Reference Range Interpretation Comments Urine pH (test code = 01014-8) 6 5-7 [facility] Leukocyte Dmcqyinb6165-43-27 14:13:00* Test Item Value Reference Range Interpretation Comments Urine Leukocyte Esterase (test code = 5799-2) TRACE NEGATIVE [facility] Zvshyzr8030-84-91 14:13:00* Test Item Value Reference Range Interpretation Comments Urine Nitrite (test code = 63472-9) NEGATIVE NEGATIVE [facility] Drylwve5091-58-93 14:13:00* Test Item Value Reference Range Interpretation Comments Urine Protein (test code = 5804-0) TRACE NEGATIVE [facility] Glucose (UA)2018-10-18 14:13:00* Test Item Value Reference Range Interpretation Comments Urine Glucose (UA) (test code = 2349-9) NEGATIVE NEGATIVE [facility]lakeUrine Hchlqnp9415-15-35 14:13:00* Test Item Value Reference Range Interpretation Comments Urine Ketones (test code = 38371-0) TRACE NEGATIVE [facility] Afnpvajjwppr7210-15-21 14:13:00* Test Item Value Reference Range Interpretation Comments Urine Urobilinogen (test code = 36967-9) 0.2 0.2-1 [facility]lakeUrine Ewpwijssm4471-79-40 14:13:00* Test Item Value Reference Range Interpretation Comments Urine Bilirubin (test code = 1978-6) 1+ NEGATIVE [facility] Kplxk3748-05-16 14:13:00* Test Item Value Reference Range Interpretation Comments Urine Blood (test code = 85898-5) NEGATIVE NEGATIVE [facility] SouthlakeCHEM CZVFU1165-42-85 13:13:000.6[facility] WRQTY1948-75-40 13:13:0099[facility] 2 COZRY6672-27-80 12:16:00 [place] [address] Patient Name: TASHI KHAN MR #: [id number] : 1955 Age/Sex: 63/F Req #: [id number] Adm Physician: Ordered by: NISHI VARGAS MD Report #: [id number] [facility]: [facility] Room/Bed: Procedure: 41 DX/CHEST 2 VIEWS Exam Date: Exam Time: REPORT STATUS: Signed Frontal and lateral views of the chest. HISTORY: Latent TB TEST, CHRON'S DZ COMPARISON: None available. DISCUSSION: Lungs: Low lung volumes result in bibasilar vascular crowding, accentuation of the pulmonary interstitial markings, central pulmonary vasculature, and the cardiac silhouette. Allowing for these limitations, the findings are as follows: Mild left basilar atel ectasis versus scarring, best seen on the frontal view. No evidence of a conso lidative pneumonia or pulmonary alveolar edema. Pleura: No pleural effu dal[place] or pneumothorax. Heart and mediastinum: The cardiomediastinal silh ouette appears unremarkable. Bones: Partially visualized posterior lumb osacral fixation hardware and decompressive laminectomy defects. IMPRE SSION: 1. Mild left basilar atelectasis versus scarring. 2. No specific r adiographic evidence of active tuberculosis Signed by: Jered AlcantarO Eve, M.M.M. on 06/10/2018 12:18 PM Dictated By: YO BRIDGES DO [facility] [facility] Signed By: YO BRIDGES DO on 06/10/181217 Transcribed By: JEFFRY on 06/108 COPY TO: NISHI VARGAS MD HEPTOBILIARY W ZREDW4000-83-30 17:37:00 [place] [address] Patient Name: TASHI KHAN MR #: [id number] : 1955 Age/Sex: 63/F Req #: [id number] Adm Physician: Ordered by: ALBERTO GIPSON MD Report #: [id number] Location: Room/Bed: Procedure: [id number] NM/HEPTOBILIARY W PHARM Solange maxwell Date: 04/19/18 Exam Time: 1010 REPORT STATUS: Signed Hepatobiliary Scan with Gallbladder Ejection Fraction Clinical i nformation: RUQ abdominal pain x 6 months; history of Crohn's disease. Re port: Following intravenous administration of 6.6 millicuries of Tc-99m mebrof enin, dynamic images of the abdomen in the anterior projection were obtained t hrough 51 minutes. Sincalide (CCK analog) 1.5 micrograms was administered int ravenously over 30 minutes with additional imaging for determination of gallbl adder ejection fraction. Perfusion to the liver is normal. Extraction of t racer from the blood pool by the liver parenchyma is normal. Tracer is seen p romptly within the biliary tract. The gallbladder begins to fill by 12 minute s post-injection of tracer and fills adequately. Tracer is seen in the small bowel during the sincalide infusion. The gallbladder ejection fraction with a dministration of sincalide is 70% (normal greater than 40%). Impression: 1. Filling of the gallbladder excludes the diagnosis of acute cystic duct obstruction/acute cholecystitis. 2. Normal gallbladder ejection fraction of 70% does not support the clinical diagnosis of chronic cholecystitis/gallbla dder dyskinesia. Signed by: Dr. Bryn Mejia M.D. on 04/19/2018 5:39 PM Dictated By: BRYN MEJIA MD 38 COPY TO: ALBERTO GIPSON MD LTJIOIMWFUH7428-97-23 14:06:00 [place] [address] Patient Name: TASHI KHAN MR #: [id number] : 1955 Age/Sex: 63/F Req #: [id number] Adm Physician: Ordered by: ALBERTO GIPSON MD Report #: [id number] Location: Room/Bed: Procedure: [id number] US/US GALLBLADDER Exam Date : Exam Time: REPORT STATUS: Signed EXAM: U S GALLBLADDER DATE: 04/19/2018 1:13 PM INDICATION: Acute gastritis COMP ARISON: None TECHNIQUE: Transverse and longitudinal cantor scale and color dopp ler sonographic images of the upper abdomen were obtained. FINDINGS: LIVER 12.7 cm in the right midclavicular line. Normal echogenicity, norm al contour, no masses. GALLBLADDER No stones, sludge, wall-thickening or pericholecystic fluid. Negative sonographic Martinez's sign. BILE DUCTS No intra nor extra-hepatic biliary dilation. Common bile duct measures 0.5 cm PANCREAS: Visualized portions are normal. RIGHT KIDNEY: 9.2 cm Ech ogenicity: Normal Collecting System: No hydronephrosis Stones: None Cyst /Mass: None VESSELS: Aorta: Visualized portions are within normal size limits Inferior Vena Cava: Patent Main Portal Vein: 0.8 cm, normal size with hepatopetal flow. FREE FLUID: None IMPRESSION: Unremarkable sonogr aphic appearance of the gallbladder. Signed by: Dr. Karon Vinson M.D. on 04/19/2018 2:08 PM Dictated By: KARON VINSON MD 07 Transcribed By: JEFFRY on 04/19/181407 COPY TO: ALBERTO GIPSON MD CHEST SINGLE (NOT PORTABLE) [place] [address] Patient Name: TASHI KHAN MR #: [id number] : 1955 Age/Sex: 62/F Req #: [id number] Adm Physician: Ordered by: PATRICIA LAYNE UKE OPERATOR Report #: [id number] Location: ER Room/Bed: Procedure: [id number] DX/CHEST SINGLE (NOT ADDIE BLE) Exam Date: 07/21/17 Exam Time: 1235 REPOR T STATUS: Signed PROCEDURE: A single AP view of the chest. COMPARISON : Chest x-ray of 12/12/2011. INDICATIONS: CHEST PAIN FINDINGS: Lines/tubes: None. Lungs: The lungs are well inflated. Several subtle n odular opacities in the right upper lobe. Slight increase in groundglass opac ity in the left lung base. Pleura: There is no pleural effusion or pne umothorax. Heart and mediastinum: The heart and the mediastinum are unrem arkable. Bones: No acute bony abnormality. Severe degenerative changes in bilateral humeral heads with flattening of the right humeral head. IM PRESSION: 1. Scattered nodular opacities in the right upper lobe and grou nd glass opacities in left lung base. This likely represents infection. 2. Severe degenerative changes in bilateral humeral heads with collapse of the r ight humeral head. Correlate for avascular necrosis. Dictated by: Erich Bobo M.D. on 07/21/2017 at 13:06 Electronically approved by: Erich Bobo M.D. o n 07/21/2017 at 13:06 Dictated By: ERICH BOOB MD Electronically Sign ed By: ERICH BOBO MD on 07/21/17 1306 Transcribed By: FEDERICA on 07/21/17 1306 COPY TO: PATRICIA LAYNE NP
--- NOTE | 2020-02-29 12:02 | Emergency Department Note ---
History of Present Illnes History of Present Illness Chief Complaint: Extremity Trauma/Pain History of Present Illness This is a 64 year old female Chief Complaint Comment pt c/o left shoulder pain since this am, pt states she had surgery on december 13 and is in a sling. pt denies CP or SOB. . Historian: Patient Arrival Mode: Car Onset (how long ago): day(s) (2) Location: left sholder Quality: sharp Radiation: Denies non-radiation, Denies back, Denies neck, Denies extremity, Denies abdomen, Denies periumbilical, Denies flank, Denies proximal, Denies distal, Denies other Severity: moderate Onset quality: gradual Duration (how long): day(s) (2) Timing of current episode: constant Progression: unchanged Context: Denies recent illness, Denies recent surgery, Denies recent immobilization, Denies recent travel, Denies trauma/injury, Denies new medications, Denies hx of DVT/PE, Denies non-compliance w/ medications, Denies other Relieving factors: none Exacerbating factors: none Associated symptoms: Reports denies other symptoms Treatments prior to arrival: none Past Medical/Family History Physician Review I have reviewed the patient's past medical and family history. Any updates have been documented here. Past Medical History Recent Fever: No Clinical Suspicion of Infectio: No New/Unexplained Change in Ment: No Past Medical History: Chronic Back Pain, Osteoarthritis Other Medical History: RA CROHNS osetoarthritis/ddd/osteoporosis spinal stenosis GERD GASTRITIS ULCERS NEUROPATHY Past Surgical History: Back Surgery Other Surgery: ROTATOR CUFF knees rods to lumbar spine SCREWS IN HIP LEFT SHOULDER right shoulder surgery 2019 Social History Smoking Cessation: Never Smoker Counseling Performed: No Alcohol Use: None Any Illegal Drug Use: No Physically hurt or threatened: No Other Last Tetanus: UNK Any Pre-Existing Lines (PICC,: No Review of Systems Review of Systems Constitutional: Reports no symptoms EENTM: Reports no symptoms Cardiovascular: Reports no symptoms Respiratory: Reports no symptoms Gastrointestinal: Reports no symptoms Genitourinary: Reports no symptoms Musculoskeletal: Reports as per HPI Integumentary: Reports no symptoms Neurological: Reports no symptoms Psychological: Reports no symptoms Endocrine: Reports no symptoms Hematological/Lymphatic: Reports no symptoms Physical Exam Related Data Allergies: Coded Allergies: No Known Allergies (Unverified , 10/18/18) Triage Vital Signs Vital Signs Date Time Temp Pulse Resp B/P (MAP) Pulse Ox O2 Delivery O2 Flow Rate FiO2 02/29/20 11:07 98.2 108 18 161/92 96 Vital signs reviewed: Yes Physical Exam CONSTITUTIONAL Constitutional: Present well-developed, Present well-nourished HENT HENT: Present normocephalic, Present atraumatic, Present oropharynx clear/mo ist, Present nose normal HENT L/R: Present left ext ear normal, Present right ext ear normal EYES Eyes: Reports PERRL, Reports conjunctivae normal NECK Neck: Present ROM normal PULMONARY Pulmonary: Present effort normal, Present breath sounds normal CARDIOVASCULAR Cardiovascular: Present regular rhythm, Present heart sounds normal, Present capillary refill normal, Present normal rate GASTROINTESTINAL Abdominal: Present soft, Present nontender, Present bowel sounds normal GENITOURINARY Genitourinary: Present exam deferred SKIN Skin: Present warm, Present dry MUSCULOSKELETAL Musculoskeletal: Present tenderness (left shulder) NEUROLOGICAL Neurological: Present alert, Present oriented x 3, Present no gross motor or sensory deficits PSYCHOLOGICAL Psychological: Present mood/affect normal, Present judgement normal Results Imaging Imaging results reviewed: Yes Assessment & Plan Medical Decision Making MDM contusion arthritis Reassessment Reassessment time: 11:56 Reassessment better Assessment & Plan Final Impression: (1) Left shoulder pain Last Vital Signs Date Time Temp Pulse Resp B/P (MAP) Pulse Ox O2 Delivery O2 Flow Rate FiO2 02/29/20 11:07 98.2 108 18 161/92 96 Home Meds Reported Medications Omeprazole Magnesium (PRILOSEC OTC) 20 Mg Tablet.dr, 40 MG PO BID 10/20/18 Sucralfate (CARAFATE) 1 Gm/10 Ml Oral.susp, 1 GM PO QID, ML 10/20/18 Omeprazole Magnesium (PRILOSEC OTC) 20 Mg Tablet.dr, 40 MG PEG BID 10/20/18 Sucralfate (CARAFATE) 1 Gm Tablet, 1 TAB PO QID 10/20/18 [Millipred] 5 MG TABLET No Conflict Check, 2 MG PO DAILY 07/18/13 Alprazolam (Xanax) 0.5 Mg Tablet, 0.5 MG PO BID PRN 12/11/11 Tramadol Hcl (ULTRAM 50MG) 50 Mg Tab, 50 MG PO Q6 PRN 12/10/11 Citalopram Hydrobromide (Celexa) 40 Mg Tablet, 40 MG PO DAILY 12/10/11 Hydroxychloroquine Sulfate (Plaquenil) 200 Mg Tablet 12/10/11 Methotrexate Sodium (Trexall) 10 Mg Tablet 12/10/11 Tapentadol Hcl (NUCYNTA ER) 100 Mg Tab.er.12h, 200 MG PO Q8 PRN 12/10/11 Infliximab (Remicade) 100 Mg Vial, EVERY 4 WEEKS, 0 Refills 12/10/11 DARI BERG MD Feb 29, 2020 12:02
== END 2020-02-29 12:02 | disposition home or self-care (01) ==
LOC: FSED 10:59
DX: M25.512 Pain in left shoulder (principal); M06.9 Rheumatoid arthritis, unspecified; K50.90 Crohn's disease, unspecified, without complications; M54.9 Dorsalgia, unspecified; G89.29 Other chronic pain
CPT/HCPCS: 99282

== ENCOUNTER 2020-08-16 13:29 | Emergency (ER) | payer OTHER ==
[~2020-08-16] VITALS: Ht 157.5 cm; Wt 72.6 kg
[2020-08-16] MEDS ORDERED: CEFEPIME 1GM/NS 0.9% 50 ML 50 ML IV STA (13:54)
[2020-08-16] MEDS ORDERED: ASPIRIN 81 MG CHEW TAB PO ONE (14:00)
[2020-08-16 14:22] LABS: BASOPHILS # (AUTO) 0.1 (0.0-0.1); BASOPHILS % 0.9 % (0.0-1.0); EOSINOPHILS # (AUTO) 1.3 (0.0-0.4); EOSINOPHILS % 15.1 % (0.0-6.0); HEMATOCRIT 40.9 % (34.2-44.1); HEMOGLOBIN 13.1 g/dL (12.0-16.0); LYMPHOCYTES # (AUTO) 3.2 (1.0-3.2); LYMPHOCYTES % 37.7 % (18.0-39.1); MEAN CORPUSCULAR HEMOGLOBIN 28.6 pg (28-32); MEAN CORPUSCULAR VOLUME 89.3 fL (81-99); MONOCYTES # (AUTO) 0.5 (0.2-0.8); MONOCYTES % 5.8 % (4.4-11.3); NEUTROPHILS # (AUTO) 3.4 (2.1-6.9); NEUTROPHILS % 40.1 % (38.7-80.0); PLATELET COUNT 255 x10e3/uL (140-360); RED BLOOD COUNT 4.58 x10e6/uL (3.6-5.1); RED CELL DISTRIBUTION WIDTH 14.3 % (11.7-14.4)
[2020-08-16 14:39] LABS: ALANINE AMINOTRANSFERASE 19 IU/L (0-55); ALBUMIN 3.3 g/dL (3.5-5.0); ALBUMIN/GLOBULIN RATIO 0.8 (0.8-2.0); ALKALINE PHOSPHATASE 94 IU/L (40-150); ANION GAP 16.6 mmol/L (8-16); BLOOD UREA NITROGEN 6 mg/dL (7-26); BUN/CREATININE RATIO 8 (6-25); CALCIUM 8.6 mg/dL (8.4-10.2); CARBON DIOXIDE 27 mmol/L (22-29); CHLORIDE 104 mmol/L (98-107); CREATINE KINASE 50 IU/L (29-168); CREATININE, SERUM 0.75 mg/dL (0.57-1.11); EST GLOMERULAR FILTRATION RATE > 60 ML/MIN (60-); GLUCOSE 103 mg/dL (74-118); POTASSIUM 3.6 mmol/L (3.5-5.1); SODIUM 144 mmol/L (136-145)
[2020-08-16 15:33] LABS: CLARITY,URINE SL CLOUDY (CLEAR); COLOR,URINE YELLOW (YELLOW); KETONES,URINE NEGATIVE (NEGATIVE); LEUKOCYTE ESTERASE ,URINE TRACE (NEGATIVE); NITRITE,URINE NEGATIVE (NEGATIVE); PROTEIN,URINE DIPSTICK NEGATIVE (NEGATIVE); URINE UROBILINOGEN 0.2 mg/dL (0.2 - 1)
[2020-08-16 15:45] LABS: BACTERIA,URINE RARE /HPF; EPITHELIAL CELLS,URINE FEW /LPF; MUCUS,URINE FEW (RARE); RBC,URINE 0-5 /HPF (0-5); WBC,URINE (MAN) 0-5 /HPF (0-5)
[2020-08-16] MEDS ORDERED: IOPAMIDOL 370 MG/ML 200 ML INFUS..BTL INJ ONE (18:04)
[2020-08-16] MEDS ORDERED: SODIUM CHLORIDE 0.9% 50ML 50 ML ONE (18:04)
== END 2020-08-16 17:43 | disposition home or self-care (01) ==
LOC: ER 13:55
DX: R10.32 Left lower quadrant pain (principal); R11.2 Nausea with vomiting, unspecified; K21.9 Gastro-esophageal reflux disease without esophagitis; M06.9 Rheumatoid arthritis, unspecified; G62.9 Polyneuropathy, unspecified; M54.9 Dorsalgia, unspecified; G89.29 Other chronic pain; Z87.19 Personal history of other diseases of the digestive system
CPT/HCPCS: 36415; 74177; 80053; 81001; 82550; 82553; 83605; 84484; 85025; 87040; 99284; J0692; Q9967

== ENCOUNTER 2022-02-04 11:28 | Inpatient (IN) | payer OTHER ==
[~2022-02-04] VITALS: Ht 157.5 cm; Wt 61.4 kg
[2022-02-04] VITALS (22 sets, daily range): BP systolic 75–106; BP diastolic 52–71
[~2022-02-04 11:28] MED LIST changes: +ETOMIDATE 2 MG/ML 10 ML INJ IV ONE; +SUCCINYLCHOLINE CHLORIDE 20 MG/ML 10ML VIAL ONE
[2022-02-04] MEDS ORDERED: NALOXONE HCL INJ 0.4 MG/ML AMP ONE (11:46)
[2022-02-04] MEDS ORDERED: NALOXONE HCL 2MG/2 ML SYRINGE ONE (11:47)
[2022-02-04] MEDS ORDERED: SODIUM CHLORIDE 0.9% 1000ML 2,000 ML ONE (11:51)
[2022-02-04 12:00] LABS: BASOPHILS # (AUTO) 0.1 (0.0-0.1); BASOPHILS % 0.5 % (0.0-1.0); EOSINOPHILS % 0.3 % (0.0-6.0); HEMATOCRIT 36.3 % (34.2-44.1); HEMOGLOBIN 11.6 g/dL (12.0-16.0); LYMPHOCYTES # (AUTO) 2.8 (1.0-3.2); MEAN CORPUSCULAR HEMOGLOBIN 30.1 pg (28-32); MONOCYTES # (AUTO) 0.6 (0.2-0.8); MONOCYTES % 5.4 % (4.4-11.3); NEUTROPHILS # (AUTO) 8.2 (2.1-6.9); NEUTROPHILS % 69.4 % (38.7-80.0); PLATELET COUNT 321 x10e3/uL (140-360); RED BLOOD COUNT 3.86 x10e6/uL (3.6-5.1); RED CELL DISTRIBUTION WIDTH 14.3 % (11.7-14.4)
[2022-02-04] MEDS ORDERED: NALOXONE HCL IV SCH (12:08)
[2022-02-04] MEDS ORDERED: SODIUM CHLORIDE 0.9% IV SCH (12:08)
[2022-02-04 12:24] LABS: ALANINE AMINOTRANSFERASE 12 IU/L (0-55); ALBUMIN 3.5 g/dL (3.5-5.0); ALKALINE PHOSPHATASE 66 IU/L (40-150); ANION GAP 13.3 mmol/L (8-16); BLOOD UREA NITROGEN 14 mg/dL (7-26); BUN/CREATININE RATIO 17 (6-25); CALCIUM 8.5 mg/dL (8.4-10.2); CARBON DIOXIDE 29 mmol/L (22-29); CHLORIDE 102 mmol/L (98-107); CREATINE KINASE 25 IU/L (29-168); CREATININE, SERUM 0.82 mg/dL (0.57-1.11); GLUCOSE 101 mg/dL (74-118); POTASSIUM 4.3 mmol/L (3.5-5.1); SODIUM 140 mmol/L (136-145)
[2022-02-04 12:44] LABS: THYROID STIMULATING HORMONE 0.237 uIU/mL (0.350-4.940)
[2022-02-04] MEDS ORDERED: PROPOFOL IV EMULSION 10MG/ML 100 ML IV STA ×2 (12:44→20:29)
[2022-02-04] MEDS ORDERED: SODIUM CHLORIDE 0.9% 1000ML 1,000 ML IV SCH (12:45)
[2022-02-04] MEDS ORDERED: MIDAZOLAM HCL 2 MG/2 ML VIAL IV NR (12:45)
[2022-02-04] MEDS ORDERED: PROPOFOL IV EMULSION 50 ML IV ONE (12:57)
[2022-02-04 13:21] LABS: PHENCYCLIDINE SCREEN,URINE NEGATIVE (NEGATIVE)
[2022-02-04 13:22] LABS: AMPHETAMINES SCREEN,URINE NEGATIVE (NEGATIVE); BENZODIAZEPINES SCREEN,URINE POSITIVE (NEGATIVE)
[2022-02-04 13:24] LABS: CLARITY,URINE CLEAR (CLEAR); COLOR,URINE YELLOW (YELLOW); KETONES,URINE NEGATIVE (NEGATIVE); LEUKOCYTE ESTERASE ,URINE NEGATIVE (NEGATIVE); NITRITE,URINE NEGATIVE (NEGATIVE); PROTEIN,URINE DIPSTICK NEGATIVE (NEGATIVE)
[2022-02-04 13:56] LABS: BACTERIA,URINE FEW /HPF; EPITHELIAL CELLS,URINE RARE /LPF; RBC,URINE 0-5 /HPF (0-5); URINE UROBILINOGEN 0.2 mg/dL (0.2 - 1); WBC,URINE (MAN) 0-5 /HPF (0-5)
[2022-02-04 15:04] LABS: ABG HCO3 26 mmol/L (22-26); ABG PCO2 28 mmHg (35-45); ABG PH 7.57 (7.35-7.45); ABG PO2 171 mmHg (80-105)
[2022-02-04 15:05] LABS: ABG TCO2 27
[2022-02-04] MEDS ORDERED: LACTATED RINGER'S 1,000 ML INJ ONE (19:00)
[2022-02-04] MEDS: SODIUM CHLORIDE 0.9% 1000ML 1,000 ML IV SCH (20:42)
[2022-02-05] VITALS (87 sets, daily range): BP systolic 78–167; BP diastolic 51–86
[2022-02-05] MEDS ORDERED: NOREPINEPHRINE 8 MG/D5W 250 ML 250 ML IV PRN (04:45)
[2022-02-05] MEDS: SODIUM CHLORIDE 0.9% 1000ML 1,000 ML IV SCH (05:04)
[2022-02-05 06:58] LABS: BASOPHILS % 0.3 % (0.0-1.0); EOSINOPHILS # (AUTO) 0.1 (0.0-0.4); HEMATOCRIT 30.1 % (34.2-44.1); HEMOGLOBIN 9.7 g/dL (12.0-16.0); LYMPHOCYTES % 39.1 % (18.0-39.1); MEAN CORPUSCULAR HEMOGLOBIN 29.7 pg (28-32); MEAN CORPUSCULAR HGB CONC 32.2 g/dL (31-35); MONOCYTES # (AUTO) 0.7 (0.2-0.8); MONOCYTES % 6.5 % (4.4-11.3); NEUTROPHILS # (AUTO) 5.3 (2.1-6.9); NEUTROPHILS % 52.5 % (38.7-80.0); PLATELET COUNT 226 x10e3/uL (140-360); RED BLOOD COUNT 3.27 x10e6/uL (3.6-5.1); RED CELL DISTRIBUTION WIDTH 14.6 % (11.7-14.4)
[2022-02-05 07:28] LABS: ANION GAP 12.6 mmol/L (8-16); CALCIUM 8.1 mg/dL (8.4-10.2); CREATININE, SERUM 0.75 mg/dL (0.57-1.11); POTASSIUM 3.6 mmol/L (3.5-5.1)
[2022-02-05] MEDS: ENOXAPARIN SOD INJ 40 MG/0.4 ML SYR SC SCH (08:48)
[2022-02-05] MEDS: DEXTROSE 5%/0.45% SOD CHL 1,000 ML IV SCH ×2 (09:26→22:19)
[2022-02-05 10:19] LABS: ABG HCO3 24 mmol/L (22-26); ABG PCO2 33 mmHg (35-45); ABG PH 7.46 (7.35-7.45); ABG PO2 119 mmHg (80-105); ABG TCO2 25
[2022-02-06] VITALS (47 sets, daily range): BP systolic 65–145; BP diastolic 50–86
[2022-02-06] MEDS ORDERED: PROPOFOL IV EMULSION 10MG/ML 100 ML ONE (05:04)
[2022-02-06 07:07] LABS: BASOPHILS % 0.2 % (0.0-1.0); EOSINOPHILS # (AUTO) 0.1 (0.0-0.4); EOSINOPHILS % 1.1 % (0.0-6.0); HEMATOCRIT 29.5 % (34.2-44.1); HEMOGLOBIN 9.4 g/dL (12.0-16.0); MEAN CORPUSCULAR HGB CONC 31.9 g/dL (31-35); MEAN CORPUSCULAR VOLUME 94.2 fL (81-99); MONOCYTES # (AUTO) 0.8 (0.2-0.8); MONOCYTES % 9.1 % (4.4-11.3); NEUTROPHILS # (AUTO) 5.6 (2.1-6.9); NEUTROPHILS % 65.2 % (38.7-80.0); PLATELET COUNT 191 x10e3/uL (140-360); RED BLOOD COUNT 3.13 x10e6/uL (3.6-5.1); RED CELL DISTRIBUTION WIDTH 14.7 % (11.7-14.4)
[2022-02-06 07:40] LABS: ALBUMIN 2.5 g/dL (3.5-5.0); ALBUMIN/GLOBULIN RATIO 0.9 (0.8-2.0); ANION GAP 8.6 mmol/L (8-16); CALCIUM 7.9 mg/dL (8.4-10.2); CREATININE, SERUM 0.74 mg/dL (0.57-1.11); POTASSIUM 3.6 mmol/L (3.5-5.1)
[2022-02-06] MEDS: ENOXAPARIN SOD INJ 40 MG/0.4 ML SYR SC SCH (08:30)
[2022-02-06 09:29] LABS: ABG HCO3 25 mmol/L (22-26); ABG PCO2 48 mmHg (35-45); ABG PH 7.34 (7.35-7.45); ABG PO2 119 mmHg (80-105)
[2022-02-06 09:30] LABS: ABG TCO2 27
[2022-02-06] MEDS: DEXTROSE 5%/0.45% SOD CHL 1,000 ML IV SCH (15:08)
[2022-02-06] MEDS: ACETAMINOPHEN 325 MG TAB PO PRN (15:34)
[2022-02-07] VITALS (8 sets, daily range): BP systolic 89–118; BP diastolic 57–68
[2022-02-07] MEDS: DEXTROSE 5%/0.45% SOD CHL 1,000 ML IV SCH (00:20)
[2022-02-07 07:09] LABS: BASOPHILS % 0.5 % (0.0-1.0); EOSINOPHILS # (AUTO) 0.1 (0.0-0.4); EOSINOPHILS % 0.6 % (0.0-6.0); HEMOGLOBIN 9.5 g/dL (12.0-16.0); LYMPHOCYTES # (AUTO) 1.9 (1.0-3.2); LYMPHOCYTES % 22.4 % (18.0-39.1); MEAN CORPUSCULAR HEMOGLOBIN 29.9 pg (28-32); MEAN CORPUSCULAR HGB CONC 31.7 g/dL (31-35); MEAN CORPUSCULAR VOLUME 94.3 fL (81-99); MONOCYTES # (AUTO) 0.7 (0.2-0.8); MONOCYTES % 8.2 % (4.4-11.3); NEUTROPHILS # (AUTO) 5.9 (2.1-6.9); NEUTROPHILS % 68.1 % (38.7-80.0); PLATELET COUNT 192 x10e3/uL (140-360); RED BLOOD COUNT 3.18 x10e6/uL (3.6-5.1); RED CELL DISTRIBUTION WIDTH 13.9 % (11.7-14.4)
[2022-02-07 07:27] LABS: ALBUMIN 2.7 g/dL (3.5-5.0); ALBUMIN/GLOBULIN RATIO 0.8 (0.8-2.0); ANION GAP 13.5 mmol/L (8-16); CALCIUM 7.9 mg/dL (8.4-10.2); CREATININE, SERUM 0.7 mg/dL (0.57-1.11); POTASSIUM 3.5 mmol/L (3.5-5.1)
[2022-02-07] MEDS: ENOXAPARIN SOD INJ 40 MG/0.4 ML SYR SC SCH (08:19)
[2022-02-07] MEDS: LEVOFLOXACIN 500 MG TAB PO SCH (15:45)
[2022-02-07] MEDS ORDERED: LORAZEPAM 0.5 MG TAB PO ONE (20:15)
[2022-02-07] MEDS: ACETAMINOPHEN 325 MG TAB PO PRN (20:30)
[2022-02-08] VITALS (9 sets, daily range): BP systolic 111–147; BP diastolic 53–82
[2022-02-08 06:34] LABS: BASOPHILS % 0.6 % (0.0-1.0); EOSINOPHILS # (AUTO) 0.2 (0.0-0.4); EOSINOPHILS % 2.8 % (0.0-6.0); HEMATOCRIT 32.4 % (34.2-44.1); HEMOGLOBIN 10.4 g/dL (12.0-16.0); LYMPHOCYTES # (AUTO) 2.4 (1.0-3.2); LYMPHOCYTES % 33.4 % (18.0-39.1); MEAN CORPUSCULAR HGB CONC 32.1 g/dL (31-35); MEAN CORPUSCULAR VOLUME 93.4 fL (81-99); MONOCYTES # (AUTO) 0.7 (0.2-0.8); MONOCYTES % 9.2 % (4.4-11.3); NEUTROPHILS # (AUTO) 3.9 (2.1-6.9); NEUTROPHILS % 53.7 % (38.7-80.0); PLATELET COUNT 202 x10e3/uL (140-360); RED BLOOD COUNT 3.47 x10e6/uL (3.6-5.1); RED CELL DISTRIBUTION WIDTH 13.7 % (11.7-14.4)
[2022-02-08 06:57] LABS: ALBUMIN 2.7 g/dL (3.5-5.0); ALBUMIN/GLOBULIN RATIO 0.7 (0.8-2.0); ANION GAP 12.2 mmol/L (8-16); CALCIUM 8.3 mg/dL (8.4-10.2); CREATININE, SERUM 0.71 mg/dL (0.57-1.11); POTASSIUM 4.2 mmol/L (3.5-5.1)
[2022-02-08] MEDS: ACETAMINOPHEN 325 MG TAB PO PRN ×2 (08:36→20:40)
[2022-02-08] MEDS: ENOXAPARIN SOD INJ 40 MG/0.4 ML SYR SC SCH (08:37)
[2022-02-08] MEDS: CITALOPRAM HYDROBROMIDE 20 MG TAB PO SCH (11:54)
[2022-02-08] MEDS: PANTOPRAZOLE SOD 40 MG TABEC PO SCH (11:54)
[2022-02-08] MEDS: FAMOTIDINE 20 MG TAB PO SCH (16:00)
[2022-02-08] MEDS: LEVOFLOXACIN 500 MG TAB PO SCH (16:00)
[2022-02-09] VITALS (8 sets, daily range): BP systolic 131–156; BP diastolic 74–86
[2022-02-09] MEDS ORDERED: LORAZEPAM 0.5 MG TAB PO PRN (08:15)
[2022-02-09] MEDS: PANTOPRAZOLE SOD 40 MG TABEC PO SCH (09:13)
[2022-02-09] MEDS: HYDROXYCHLOROQUINE SULFATE 200 MG TAB PO SCH (09:13)
[2022-02-09] MEDS: CITALOPRAM HYDROBROMIDE 20 MG TAB PO SCH (09:13)
[2022-02-09] MEDS: ACETAMINOPHEN 325 MG TAB PO PRN ×2 (09:14→19:37)
[2022-02-09] MEDS ORDERED: LORAZEPAM 0.5 MG TAB PO ONE (09:30)
[2022-02-09 10:41] LABS: ALBUMIN 3.1 g/dL (3.5-5.0); ALBUMIN/GLOBULIN RATIO 0.8 (0.8-2.0); ANION GAP 12.7 mmol/L (8-16); CALCIUM 8.8 mg/dL (8.4-10.2); CREATININE, SERUM 0.7 mg/dL (0.57-1.11); POTASSIUM 3.7 mmol/L (3.5-5.1)
[2022-02-09 10:45] LABS: BASOPHILS # (AUTO) 0.1 (0.0-0.1); BASOPHILS % 0.5 % (0.0-1.0); EOSINOPHILS % 0.3 % (0.0-6.0); HEMATOCRIT 32.8 % (34.2-44.1); HEMOGLOBIN 10.9 g/dL (12.0-16.0); LYMPHOCYTES # (AUTO) 1.4 (1.0-3.2); LYMPHOCYTES % 15.1 % (18.0-39.1); MEAN CORPUSCULAR HEMOGLOBIN 29.6 pg (28-32); MEAN CORPUSCULAR HGB CONC 33.2 g/dL (31-35); MONOCYTES # (AUTO) 0.6 (0.2-0.8); MONOCYTES % 5.8 % (4.4-11.3); NEUTROPHILS # (AUTO) 7.4 (2.1-6.9); NEUTROPHILS % 77.7 % (38.7-80.0); PLATELET COUNT 156 x10e3/uL (140-360); RED BLOOD COUNT 3.68 x10e6/uL (3.6-5.1); RED CELL DISTRIBUTION WIDTH 13.5 % (11.7-14.4)
[2022-02-09 10:55] LABS: MEAN CORPUSCULAR VOLUME 89.1 fL (81-99)
[2022-02-09] MEDS: LEVOFLOXACIN 500 MG TAB PO SCH (16:03)
[2022-02-09] MEDS: FAMOTIDINE 20 MG TAB PO SCH (16:03)
[2022-02-10] VITALS: BP 146/83
[2022-02-10] MEDS: ACETAMINOPHEN 325 MG TAB PO PRN (03:57)
[2022-02-10 06:03] LABS: BASOPHILS % 0.4 % (0.0-1.0); EOSINOPHILS # (AUTO) 0.1 (0.0-0.4); EOSINOPHILS % 0.6 % (0.0-6.0); HEMOGLOBIN 11.7 g/dL (12.0-16.0); LYMPHOCYTES % 23.5 % (18.0-39.1); MEAN CORPUSCULAR HEMOGLOBIN 29.8 pg (28-32); MEAN CORPUSCULAR HGB CONC 34.4 g/dL (31-35); MEAN CORPUSCULAR VOLUME 86.5 fL (81-99); MONOCYTES # (AUTO) 0.7 (0.2-0.8); MONOCYTES % 7.9 % (4.4-11.3); NEUTROPHILS # (AUTO) 5.7 (2.1-6.9); NEUTROPHILS % 66.7 % (38.7-80.0); PLATELET COUNT 266 x10e3/uL (140-360); RED BLOOD COUNT 3.93 x10e6/uL (3.6-5.1)
[2022-02-10 06:06] VITALS: BP 146/87
[2022-02-10 06:27] LABS: ALBUMIN 3.3 g/dL (3.5-5.0); ALBUMIN/GLOBULIN RATIO 0.8 (0.8-2.0); ANION GAP 13.7 mmol/L (8-16); CALCIUM 9.2 mg/dL (8.4-10.2); CREATININE, SERUM 0.67 mg/dL (0.57-1.11); POTASSIUM 3.7 mmol/L (3.5-5.1)
[2022-02-10 08:07] VITALS: BP 116/72
[2022-02-10 08:20] VITALS: BP 116/72
[2022-02-10] MEDS: PANTOPRAZOLE SOD 40 MG TABEC PO SCH (08:52)
[2022-02-10] MEDS: HYDROXYCHLOROQUINE SULFATE 200 MG TAB PO SCH (08:53)
[2022-02-10] MEDS: CITALOPRAM HYDROBROMIDE 20 MG TAB PO SCH (08:53)
[2022-02-10] MEDS ORDERED: LORAZEPAM 0.5 MG TAB PO ONE (09:00)
== END 2022-02-10 09:35 | DRG 917 ==
LOC: ER 11:35 → ERHOLD 12:38 → ER 16:02 → ICU 16:25 → MED/SURG3 02-07 16:28
PROC: 0BH17EZ Insertion of Endotracheal Airway into Trachea, Via Natural or Artificial Opening (ICD-10-PCS; principal; 2022-02-04)
PROC: 5A1935Z Respiratory Ventilation, Less than 24 Consecutive Hours (ICD-10-PCS; 2022-02-04)
PROC: 02HV33Z Insertion of Infusion Device into Superior Vena Cava, Percutaneous Approach (ICD-10-PCS; 2022-02-04)
DX: T40.2X2A Poisoning by other opioids, intentional self-harm, initial encounter (principal); G92.8 Other toxic encephalopathy; J96.01 Acute respiratory failure with hypoxia; J69.0 Pneumonitis due to inhalation of food and vomit; K50.90 Crohn's disease, unspecified, without complications; T42.4X2A Poisoning by benzodiazepines, intentional self-harm, initial encounter; T40.422A Poisoning by tramadol, intentional self-harm, initial encounter; G89.4 Chronic pain syndrome; F41.9 Anxiety disorder, unspecified; M06.9 Rheumatoid arthritis, unspecified; F32.9 Major depressive disorder, single episode, unspecified; Z20.822 Contact with and (suspected) exposure to COVID-19; Z87.11 Personal history of peptic ulcer disease; R40.2432 Glasgow coma scale score 3-8, at arrival to emergency department
CPT/HCPCS: 0223U; 31500; 36415; 36569; 36600; 70450; 71045; 74018; 80048; 80053; 80307; 81001; 82550; 82553; 82805; 82948; 84443; 84484; 85025; 87040; 87071; 87186; 87205; 93005; 94003; 94760; 94799; 96361; 99251; 99285; J0330; J0456; J0696; J1650; J2250; J2310; J7030; J7040; J7050; J7121

== ENCOUNTER 2022-04-28 11:06 | Emergency (ER) | payer OTHER ==
[~2022-04-28] VITALS: Ht 157.5 cm; Wt 54.5 kg
[~2022-04-28 11:06] MED LIST changes: -ETOMIDATE 2 MG/ML 10 ML INJ IV ONE; -SUCCINYLCHOLINE CHLORIDE 20 MG/ML 10ML VIAL ONE
[2022-04-28] MEDS ORDERED: DICYCLOMINE HCL20 MG PO (11:54)
[2022-04-28] MEDS ORDERED: FAMOTIDINE20 MG PO (11:54)
[2022-04-28] MEDS ORDERED: DEPAKOTE ER250 MG PO (11:54)
[2022-04-28] MEDS ORDERED: PANTOPRAZOLE SO20 MG PO (11:54)
[2022-04-28] MEDS ORDERED: REMERON15 MG PO (11:54)
[2022-04-28] MEDS ORDERED: ZYPREXA2.5 MG PO (11:54)
[2022-04-28] MEDS ORDERED: POTASSIUM CHLO10 ME1 PO (11:54)
[2022-04-28] MEDS ORDERED: [UNRECOGNIZED DRUG - OTHER] (11:54)
[2022-04-28] MEDS ORDERED: CLOTRIMAZOLE15 GM TOP (11:54)
[2022-04-28] MEDS ORDERED: LOMOTIL TABLET1 EACH PO (11:54)
[2022-04-28] MEDS ORDERED: FEROSUL325 MG PO (11:54)
[2022-04-28 12:06] VITALS: BP 93/56
[2022-04-28] MEDS ORDERED: IOPAMIDOL 370 MG/ML 100 ML INFUS..BTL INJ ONE (13:10)
[2022-04-28] MEDS: SODIUM CHLORIDE 0.9% 1000ML 1,000 ML IV SCH (13:40)
[2022-04-28] MEDS: ONDANSETRON HCL INJ 2MG/ML 2ML 2 MG/ML VIAL IV STA (13:40)
[2022-04-28] MEDS ORDERED: ONDANSETRON HCL INJ 2MG/ML 2ML 2 MG/ML VIAL ONE (13:47)
[2022-04-28] MEDS: METHYLPREDNISOLONE SOD SUCC 125 MG/2ML VIAL IV ONE (14:30)
[2022-04-28] MEDS ORDERED: METHYLPREDNISOLONE SOD SUCC 125 MG/2ML VIAL ONE (14:42)
[2022-04-28] MEDS ORDERED: CEFTRIAXONE 1 GM VIAL ONE (14:42)
[2022-04-28] MEDS ORDERED: PREDNISONE10 MG PO (15:03)
[2022-04-28] MEDS ORDERED: CEFUROXIME500 MG PO (15:05)
== END 2022-04-28 15:20 | disposition home or self-care (01) ==
LOC: FSED 12:00
DX: R42 Dizziness and giddiness (principal); K52.9 Noninfective gastroenteritis and colitis, unspecified; E86.0 Dehydration; R31.21 Asymptomatic microscopic hematuria; M06.9 Rheumatoid arthritis, unspecified; F32.A Depression, unspecified; R94.31 Abnormal electrocardiogram [ECG] [EKG]
CPT/HCPCS: 70450; 74177; 80053; 81003; 82553; 84484; 85025; 93005; 96374; 96375; 99284; C9113; J0696; J2405; J2930; Q9967

== ENCOUNTER 2022-05-13 15:59 | Emergency (ER) | payer MEDICARE, OTHER ==
[~2022-05-13] VITALS: Ht 157.5 cm; Wt 57.6 kg
[~2022-05-13 15:59] MED LIST changes: +CEFUROXIME500 MG PO; +CLOTRIMAZOLE15 GM TOP; +DEPAKOTE ER250 MG PO; +DICYCLOMINE HCL20 MG PO; +FAMOTIDINE20 MG PO; +FEROSUL325 MG PO; +LOMOTIL TABLET1 EACH PO; +PANTOPRAZOLE SO20 MG PO; +POTASSIUM CHLO10 ME1 PO; +PREDNISONE10 MG PO; +REMERON15 MG PO; +ZYPREXA2.5 MG PO; +[UNRECOGNIZED DRUG - OTHER]
[2022-05-13] MEDS ORDERED: KETOROLAC TROMETHAMINE 60 MG/2 ML VIAL IM STA (17:25)
[2022-05-13] MEDS ORDERED: KETOROLAC TROMETHAMINE 30 MG/ML VIAL ONE (18:03)
[2022-05-13] MEDS ORDERED: VENTOLIN HFA18 GM INH (18:12)
[2022-05-13] MEDS ORDERED: AZITHROMYCIN250 MG PO (18:12)
== END 2022-05-13 18:19 | disposition home or self-care (01) ==
LOC: FSED 16:14
DX: R07.89 Other chest pain (principal)
CPT/HCPCS: 71046; 96372; 99283; J1885

== ENCOUNTER 2022-09-11 15:10 | Emergency (ER) | payer MEDICARE ==
[~2022-09-11] VITALS: Ht 157.5 cm; Wt 57.6 kg
[~2022-09-11 15:10] MED LIST changes: +AZITHROMYCIN250 MG PO; +VENTOLIN HFA18 GM INH
[2022-09-11] MEDS ORDERED: ONDANSETRON ODT4 MG PO (15:53)
[2022-09-11] MEDS ORDERED: ACETAMINOPHEN-1 EAC4 PO (15:53)
[2022-09-11] MEDS ORDERED: IBUPROFEN200 MG PO (15:53)
[2022-09-11] MEDS ORDERED: ONDANSETRON HCL 4 MG ORAL DISINTEGRATING TAB PO ONE (16:00)
[2022-09-11] MEDS ORDERED: KETOROLAC TROMETHAMINE 30 MG/ML VIAL IM ONE (16:00)
[2022-09-11] MEDS ORDERED: HYDROCODONE/APAP 5MG-325MG TAB PO ONE (16:00)
[2022-09-11] MEDS ORDERED: KETOROLAC TROMETHAMINE 30 MG/ML VIAL ONE (16:35)
[2022-09-11] MEDS ORDERED: ONDANSETRON HCL 4 MG ORAL DISINTEGRATING TAB ONE (16:35)
[2022-09-11] MEDS ORDERED: HYDROCODONE/APAP 5MG-325MG TAB ONE ×2 (16:36→16:41)
== END 2022-09-11 16:34 | disposition home or self-care (01) ==
LOC: FSED 15:19
DX: M54.6 Pain in thoracic spine (principal); G89.29 Other chronic pain; K21.9 Gastro-esophageal reflux disease without esophagitis; M06.9 Rheumatoid arthritis, unspecified; G40.909 Epilepsy, unspecified, not intractable, without status epilepticus; F41.9 Anxiety disorder, unspecified; Z87.19 Personal history of other diseases of the digestive system
CPT/HCPCS: 72100; 99284; J1885; Q0162

== ENCOUNTER 2023-10-28 10:54 | Emergency (ER) | payer MEDICARE ==
[~2023-10-28] VITALS: Ht 157.5 cm; Wt 65.3 kg
[~2023-10-28 10:54] MED LIST changes: +ACETAMINOPHEN-1 EAC4 PO; +ATIVAN0.5 MG PO; +BACTRIM DS TAB1 EACH PO; +CRESTOR10 MG PO; +DICLOFENAC EPO1 EACH TOP; +IBUPROFEN200 MG PO; +MELATONIN3 MG PO; +NAPROXEN250 MG PO; +ONDANSETRON ODT4 MG PO; +ROPINIROLE HCL1 MG PO
[2023-10-28] MEDS: TRAMADOL HCL 50 MG TAB PO ONE (12:24)
[2023-10-28] MEDS ORDERED: TRAMADOL HCL 50 MG TAB ONE (12:27)
[2023-10-28] MEDS ORDERED: PREDNISONE50 MG PO (14:31)
[2023-10-28] MEDS ORDERED: METHOCARBAMOL500 MG PO (14:34)
[2023-10-28] MEDS: PREDNISONE 20 MG TAB PO ONE (14:40)
[2023-10-28] MEDS ORDERED: PREDNISONE 20 MG TAB ONE (14:42)
[2023-10-28 14:49] VITALS: BP 117/73; PULSE 67; RESP 18; TEMP 98.1; O2SAT 99
== END 2023-10-28 14:52 | disposition home or self-care (01) ==
LOC: FSED 11:09
DX: R20.0 Anesthesia of skin (principal); R20.2 Paresthesia of skin; M50.30 Other cervical disc degeneration, unspecified cervical region; M54.12 Radiculopathy, cervical region; M06.9 Rheumatoid arthritis, unspecified; G24.9 Dystonia, unspecified; F32.A Depression, unspecified; M54.9 Dorsalgia, unspecified; G89.29 Other chronic pain
CPT/HCPCS: 72125; 93005; 99284; J7512

== ENCOUNTER 2024-04-06 10:13 | Emergency (ER) | payer MEDICARE ==
[~2024-04-06] VITALS: Ht 157.5 cm; Wt 63.5 kg
[~2024-04-06 10:13] MED LIST changes: +METHOCARBAMOL500 MG PO; +PREDNISONE50 MG PO
[2024-04-06 10:49] VITALS: TEMP 98.7
[2024-04-06] MEDS ORDERED: TRAZODONE HCL50 MG PO (11:35)
[2024-04-06] MEDS: DIPHENHYDRAMINE HCL INJ 50 MG/ML VIAL IV ONE (11:46)
[2024-04-06] MEDS: LACTATED RINGER'S 1,000 ML INJ ONE (11:46)
[2024-04-06 13:22] VITALS: PULSE 75; RESP 18; O2SAT 96
== END 2024-04-06 13:15 | disposition home or self-care (01) ==
LOC: FSED 10:24
DX: G25.81 Restless legs syndrome (principal); G24.9 Dystonia, unspecified; T42.6X5A Adverse effect of other antiepileptic and sedative-hypnotic drugs, initial encounter; F41.9 Anxiety disorder, unspecified; G40.909 Epilepsy, unspecified, not intractable, without status epilepticus; D64.9 Anemia, unspecified; G62.9 Polyneuropathy, unspecified; K21.9 Gastro-esophageal reflux disease without esophagitis; F32.A Depression, unspecified; E86.0 Dehydration
CPT/HCPCS: 80053; 85025; 99283; J1200; J7121